=== PATIENT | female | born 1980 | race Caucasian/White ===

== ENCOUNTER 2016-09-26 19:41 | Emergency (ER) | payer OTHER ==
[2016-09-26 20:15] VITALS: BP 121/63
[2016-09-26] MEDS ORDERED: Ketorolac INJ* 30 MG/ML 1 ML VIAL IV PUSH ONE (20:33)
--- NOTE | 2016-09-26 20:53 | ED ---
GI/ HPI - HPI Summary HPI Summary: 36 F presents with pelvic pain for one day. She states the pain came out of nowhere and is 8/10 at 5pm. She denies any vaginal bleeding, dysuria, fever, ab pain, and n/v/d/c. She states the pain is sharp and it is smiliar to the pain she had when she had a uterine prolapse years ago. She had a hysterectomy a year ago here due to the uterine prolapse. She has not taken anything for the pain. She denies any recent sexual activity. - History of Current Complaint Chief Complaint: EDUrogenitalProblems Time Seen by Provider: 09/26/16 20:24 Stated Complaint: PELVIC PAIN Pain Intensity: 8 - Additional Pertinent History Primary Care Physician: SATISH - Allergy/Home Medications Allergies/Adverse Reactions: Allergies Allergy/AdvReac Type Severity Reaction Status Date / Time Aspirin Allergy Intermediate Vomiting Verified 07/15/16 16:57 Penicillins Allergy Intermediate Vomiting Verified 07/15/16 16:57 Latex Allergy Mild Hives Verified 07/15/16 16:57 PMH/Surg Hx/FS Hx/Imm Hx Endocrine/Hematology History: Reports: Hx Anemia - IN THE PAST, NOT AT CURRENT TIME Denies: Hx Diabetes, Hx Systemic Lupus Erythematosus, Hx Thyroid Disease Cardiovascular History: Reports: Other Cardiovascular Problems/Disorders - murmur Denies: Hx Congestive Heart Failure, Hx Hypertension Respiratory History: Reports: Hx Asthma - childhood-STATES OUTGREW Denies: Hx Chronic Obstructive Pulmonary Disease (COPD), Other Respiratory Problems/Disorders GI History: Reports: Hx Irritable Bowel - PROBLEMS WITH CONSTIPATION, Other GI Disorders - GASTRITIS Denies: Hx Ulcer History: Reports: Hx Kidney Stones - HX OF AND CURRENTLY- STATES ARE SMALL- MONITORING Denies: Hx Dialysis Musculoskeletal History: Denies: Hx Rheumatoid Arthritis Sensory History: Reports: Hx Contacts or Glasses - GLASSES Denies: Hx Hearing Aid Opthamlomology History: Reports: Hx Contacts or Glasses - GLASSES Neurological History: Reports: Hx Headaches - AT TIMES-TREATS WITH REST- TREATS WITH IBUPROFEN OR TYLENOL, Hx Migraine, Other Neuro Impairments/Disorders - ON MEDICATION FOR Psychiatric History: Reports: Hx Anxiety - ON MEDICATION, Hx Depression - ON MEDICATION FOR - Cancer History Hx Chemotherapy: No - Surgical History Surgery Procedure, Year, and Place: TUBAL LIGATION- 3 YEARS AGO- [facility] [place]AL SURGERY- OFFICE. 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 Denies: Hx Clostridium Difficile, Hx Hepatitis, Hx Human Immunodeficiency Virus (HIV), Hx Shingles, Hx Tuberculosis, History Other Infectious Disease, Traveled Outside the [place] in Last 30 Days - Family History Known Family History: Positive: None, Cardiac Disease, Diabetes, Other - Fibromyalgia - Social History Alcohol Use: None Hx Substance Use: No Substance Use Type: Reports: None Smoking Status (MU): Heavy Every Day Tobacco Smoker Type: Cigars Amount Used/How Often: 2 cigars/day Length of Time of Smoking/Using Tobacco: 15 YEARS Have You Smoked in the Last Year: Yes Review of Systems Negative: Fever Negative: Chest Pain Negative: Shortness Of Breath Positive: Other - pelvic pain. Negative: Abdominal Pain, Vomiting, Diarrhea, Nausea All Other Systems Reviewed And Are Negative: Yes Physical Exam Triage Information Reviewed: Yes Vital Signs On Initial Exam: Initial Vitals Temp Pulse Resp BP Pulse Ox 97.7 F 105 16 121/63 100 09/26/16 20:10 09/26/16 20:10 09/26/16 20:10 09/26/16 20:10 09/26/16 20:10 Vital Signs Reviewed: Yes Appearance: Positive: Pain Distress Skin: Positive: Warm, Dry Head/Face: Positive: Normal Head/Face Inspection Eyes: Positive: Normal, Conjunctiva Clear ENT: Positive: Normal ENT inspection, Pharynx normal, TMs normal Respiratory/Lung Sounds: Positive: Clear to Auscultation, Breath Sounds Present Cardiovascular: Positive: Normal, RRR Abdomen Description: Positive: Nontender, Soft Bowel Sounds: Positive: Present Pelvic Exam: Positive: external exam normal, other - no cervix noted, bimanual exam diffusely tender,. Negative: blood, discharge Diagnostics - Vital Signs Vital Signs Temp Pulse Resp BP Pulse Ox 09/26/16 20:10 97.7 F 105 16 121/63 100 - Laboratory Result Diagrams: 09/26/16 20:40 09/26/16 20:40 Lab Statement: Any lab studies that have been ordered have been reviewed, and results considered in the medical decision making process. - Ultrasound No standard instances Ultrasound Interpretation: No Acute Changes - There is no free fluid in the cul- de-sac. IMPRESSION: Normal and age-appropriate pelvic ultrasound status post hysterectomy. Ultrasound Interpretation Completed By: Radiologist [email or web address] Course/Dx - Course Course Of Treatment: 36 F presents with sudden onset pelvic pain, no other symptoms, no recent sexual activity and post hysertecomy a year ago, abd exam benign, pelvic exam diffuse tenderness, u/s noramal posthysterectomy changes, discussed with dr wilson, considered appenditis but due to diffuse tenderness on pelvic exam no abdominal tenderness no elevated WBC or crp rate unlikely, discussed that if anything changes like develops RLQ pain needs to come, told patient to follow up with obgyn patient agrees with plan - Diagnoses Differential Diagnoses - Female: Appendicitis, STD, Urinary Tract Infection, Vaginitis Provider Diagnoses: Pelvic pain Discharge - Discharge Plan Condition: Good Disposition: HOME Patient Education Materials: Pelvic Pain in Women (ED) Referrals: Maira Hoang MD [Primary Care Provider] - Additional Instructions: Take ibuprofen or Tylenol for pain as needed Follow up with obgyn Return to ED if develop nausea, abdominal pain, fever, any new or worsening symptoms
[2016-09-26 21:10] LABS: Albumin 4.2 g/dL (3.2-5.2); BUN/Creatinine Ratio 8.1 (8-20); Calcium 9.1 mg/dL (8.6-10.3); EGFR African American 114.9 (>60); EGFR Non-African American 89.3 (>60); Globulin 2.6 g/dL (2-4); Potassium 2.8 mmol/L (3.5-5.0); Total Bilirubin 0.3 mg/dL (0.2-1.0); Total Protein 6.8 g/dL (6.4-8.9)
[2016-09-26 21:11] LABS: Urine Bilirubin Negative (Negative); Urine Glucose Negative (Negative); Urine Nitrite Negative (Negative)
[2016-09-26 21:15] LABS: Hematocrit 39 % (35-47); Hemoglobin 13.1 g/dl (12.0-16.0); Mean Corpuscular HGB Conc 34 g/dl (31-36); Mean Corpuscular Hemoglobin 31 pg (27-31); Mean Corpuscular Volume 91 fL (80-97); Mean Platelet Volume 8 um3 (7.4-10.4); Red Blood Count 4.28 10^6/ul (4.0-5.4); Red Cell Distribution Width 13 % (10.5-15); White Blood Count 6.2 10^3/ul (3.5-10.8)
--- NOTE | 2016-09-26 21:58 | RAD ---
INDICATION: Pelvic pain in a patient with a history of hysterectomy COMPARISON: Most recent pelvic ultrasound is dated September 01, 2015 TECHNIQUE: Real-time transvaginal ultrasound examination of the female pelvis including grayscale and Doppler color flow imaging. FINDINGS: Uterus: Uterus is surgically absent Ovaries: The right and left ovary measure 2.2 x 1.6 x 3.4 cm and 2.1 x 1.3 x 2.4 cm, respectively. Normal arterial and venous waveforms are identified. Appearance is within normal limits for the patient's age. There is no free fluid in the cul-de-sac. IMPRESSION: Normal and age-appropriate pelvic ultrasound status post hysterectomy.
[2016-09-26] MEDS ORDERED: Potassium Chlor TAB* 20 MEQ TAB.ER PO ONE (22:23)
--- NOTE | 2016-09-28 07:15 | ED ---
Progress - Progress Note Progress Note: Vaginal cx reveals Gardnerella BV - no meds at d/c - e-rx'd clindamycin vaginally to [facility] - [facility] Course/Dx - Course Course Of Treatment: 36 F presents with sudden onset pelvic pain, no other symptoms, no recent sexual activity and post hysertecomy a year ago, abd exam benign, pelvic exam diffuse tenderness, u/s noramal posthysterectomy changes, discussed with dr wilson, considered appenditis but due to diffuse tenderness on pelvic exam no abdominal tenderness no elevated WBC or crp rate unlikely, discussed that if anything changes like develops RLQ pain needs to come, told patient to follow up with obgyn patient agrees with plan - Diagnoses Provider Diagnoses: Pelvic pain
== END 2016-09-26 22:50 | disposition home or self-care (01) ==
LOC: ED 19:41
DX: R10.2 Pelvic and perineal pain (principal); Z90.710 Acquired absence of both cervix and uterus; F17.210 Nicotine dependence, cigarettes, uncomplicated
CPT/HCPCS: 36415; 76830; 80053; 81003; 83605; 83690; 85025; 86141; 87480; 87491; 87510; 87591; 87661; 96374; 99282; A9270-GY; J1885

== ENCOUNTER 2016-12-29 09:00 | Emergency (ER) | payer OTHER ==
[2016-12-29 10:55] VITALS: BP 119/70
--- NOTE | 2016-12-29 11:16 | UC ---
Neck Pain HPI - HPI Summary HPI Summary: The patient comes in today for: 1. Right neck pain: Onset: This morning. She was fine yesterday, and woke up with a sore neck. Palliative/provocative: Turning her head to the right or forward makes it worse. Quality: Ache. Region: Right neck Severity: 6/10 at rest. Time: Constant. Associated symptoms: Fevers: None. Numbness/weakness:None. Injury: NOne. Previous disease: None. Previous treatment: None. * - History of Current Complaint Chief Complaint: UCUpperExtremity Stated Complaint: SHOULDER AND NECK PAIN Time Seen by Provider: 12/29/16 10:26 Hx Obtained From: Patient Hx Last Menstrual Period: 09/30/14 hyst. ?: No - Allergies/Home Medications Allergies/Adverse Reactions: Allergies Allergy/AdvReac Type Severity Reaction Status Date / Time Aspirin Allergy Intermediate Vomiting Verified 12/29/16 09:19 Penicillins Allergy Intermediate Vomiting Verified 12/29/16 09:19 Latex Allergy Mild Hives Verified 12/29/16 09:19 PMH/Surg Hx/FS Hx/Imm Hx Previously Healthy: No - ADHD Endocrine History Of: Denies: Diabetes, Thyroid Disease, Hyperthyroidism, Hypothyroidism, Dyslipidemia Cardiovascular History Of: Denies: Cardiac Disorders, Hypertension, Congestive Heart Failure Respiratory History Of: Reports: Asthma - childhood-STATES OUTGREW Denies: COPD, Bronchitis, Pneumonia, Pulmonary Embolism GI/ History Of: Reports: Kidney Stones - HX OF AND CURRENTLY- STATES ARE SMALL - MONITORING Denies: Gastroesophageal Reflux, Ulcer, Gastrointestinal Bleed, Gall Bladder Disease, Diverticulitis, Renal Disease, Urosepsis Neurological History Of: Reports: Migraine Denies: TIA, CVA, Dementia, Seizures Psychological History Of: Reports: Anxiety - ON MEDICATION, Depression - ON MEDICATION FOR Denies: Bipolar Disorder, Schizophrenia, Post Traumatic Stress Disorder Cancer History Of: Denies: Lung Cancer, Colorectal Cancer, Breast Cancer, Prostate Cancer, Cervical Cancer Other History Of: Negative For: HIV, Hepatitis B, Hepatitis C, Anticoagulant Therapy - Surgical History Surgical History: Yes Surgery Procedure, Year, and Place: TUBAL LIGATION- 3 YEARS AGO- [facility] [place]GERY- OFFICE. hysterectomy 2014 Hysterectomy 2016 - Family History Known Family History: Positive: Cardiac Disease, Diabetes, Other - Fibromyalgia - Social History Occupation: Employed Full-time Alcohol Use: None Substance Use Type: None Smoking Status (MU): Heavy Every Day Tobacco Smoker Type: Cigarettes Amount Used/How Often: 2 cigars/day Length of Time of Smoking/Using Tobacco: 15 YEARS Have You Smoked in the Last Year: Yes When Did the Patient Quit Smoking/Using Tobacco: 1 MONTH Review Of Systems Constitutional: Positive: Negative Skin: Positive: Negative Eyes: Positive: Negative ENT: Positive: Negative Respiratory: Positive: Negative Cardiovascular: Positive: Negative Gastrointestinal: Positive: Negative Musculoskeletal: Positive: Arthralgia, Myalgia All Other Systems Reviewed And Are Negative: Yes Physical Exam Triage Information Reviewed: Yes Appearance: Well-Appearing, No Pain Distress, Well-Nourished Vital Signs: Initial Vital Signs Temp 98.6 F 12/29/16 09:12 Pulse 92 12/29/16 09:12 Resp 18 12/29/16 09:12 BP 109/68 12/29/16 09:12 Pulse Ox 100 12/29/16 09:12 Vital Signs Reviewed: Yes Eyes: Positive: Conjunctiva Clear. Negative: Discharge ENT: Negative: Hearing grossly normal, Pharynx normal, Pharyngeal erythema, TMs normal, TM bulging Dental: Negative: Gross Decay/Caries @, Dental Fracture @ Neck: Positive: Supple, Nontender, No Lymphadenopathy. Negative: Nuchal Rigidity Respiratory: Positive: Lungs clear, No respiratory distress, No accessory muscle use. Negative: Crackles, Stridor Cardiovascular: Positive: RRR, No Murmur Abdomen Description: Positive: Nontender, No Organomegaly, Soft. Negative: Distended, Guarding Musculoskeletal: Positive: No Edema, Other: - Neck: There is tenderness to palpation of the right trapezius and also the right scalene musculature. Range of motion of the neck is limited with extension and rotation and bilateral flexion. Neurological: Positive: Alert, Other: - DTR of the biceps, triceps, brachioradialis are 2+/2 x 2. Skin: Negative: rashes, breakdown Neck Pain Course/Dx - Course Course Of Treatment: Patient told of some home physical stretching exercises. She was told of her treatment options. She was not interesed in getting an x- ray. - Differential Dx/Diagnosis Differential Dx/HQI/PQRI: Dystonia, Torticollis, Trauma Provider Diagnoses: Cervical strain, right. Discharge - Discharge Plan Condition: Stable Disposition: HOME Patient Education Materials: Cervical Strain (ED) Referrals: Maira Hoang MD [Primary Care Provider] - 1 Week (Please see your primary care provider in a week to see how well you are doing. If you get worse, please be seen sooner in the ER or through us.)
== END 2016-12-29 11:35 | disposition home or self-care (01) ==
LOC: UCEAST 09:00
DX: S16.1XXA Strain of muscle, fascia and tendon at neck level, initial encounter (principal); X58.XXXA Exposure to other specified factors, initial encounter; Y93.9 Activity, unspecified; Y92.9 Unspecified place or not applicable; G43.909 Migraine, unspecified, not intractable, without status migrainosus; N20.0 Calculus of kidney; Z87.442 Personal history of urinary calculi; F90.9 Attention-deficit hyperactivity disorder, unspecified type; F41.8 Other specified anxiety disorders; Z88.6 Allergy status to analgesic agent; Z88.0 Allergy status to penicillin; F17.210 Nicotine dependence, cigarettes, uncomplicated
CPT/HCPCS: 99212; G0463

== ENCOUNTER 2017-04-20 20:26 | Emergency (ER) | payer OTHER ==
--- NOTE | 2017-04-20 20:27 | UC ---
Hand/Wrist HPI - HPI Summary HPI Summary: 36 year old female presents with complains of smashing his right hand into the wind shield. - History Of Current Complaint Stated Complaint: RIGHT HAND INJURY Time Seen by Provider: 04/20/17 20:26 Hx Last Menstrual Period: 09/30/14 hyst. - Allergies/Home Medications Allergies/Adverse Reactions: Allergies Allergy/AdvReac Type Severity Reaction Status Date / Time Aspirin Allergy Intermediate Vomiting Verified 04/20/17 20:37 Penicillins Allergy Intermediate Vomiting Verified 04/20/17 20:37 Latex Allergy Mild Hives Verified 04/20/17 20:37 Home Medications: Home Medications Omeprazole CAP* [Prilosec CAP* 20 MG] 20 mg PO DAILY 04/20/17 [History Confirmed 04/20/17] PMH/Surg Hx/FS Hx/Imm Hx Other History Of: Negative For: HIV, Hepatitis B, Hepatitis C, Anticoagulant Therapy - Surgical History Surgical History: Yes Surgery Procedure, Year, and Place: TUBAL LIGATION- 3 YEARS AGO- [facility] – [place]. ORAL SURGERY- OFFICE. hysterectomy 2014 Hysterectomy 2016 - Family History Known Family History: Positive: Cardiac Disease, Diabetes, Other - Fibromyalgia - Social History Alcohol Use: None Substance Use Type: None Smoking Status (MU): Heavy Every Day Tobacco Smoker Type: Cigarettes Amount Used/How Often: 2 cigars/day Length of Time of Smoking/Using Tobacco: 15 YEARS Have You Smoked in the Last Year: Yes When Did the Patient Quit Smoking/Using Tobacco: 1 MONTH Review of Systems Constitutional: Negative Skin: Negative Eyes: Negative ENT: Negative Respiratory: Negative Cardiovascular: Negative Gastrointestinal: Negative Genitourinary: Negative Motor: Negative Neurovascular: Negative Musculoskeletal: Other: - right wrist pain/swelling Neurological: Negative Psychological: Negative All Other Systems Reviewed And Are Negative: Yes Physical Exam Triage Information Reviewed: Yes Eye Exam: Normal ENT Exam: Normal Dental Exam: Normal Neck exam: Normal Neck: Positive: 1 Respiratory Exam: Normal Cardiovascular Exam: Normal Abdominal Exam: Normal Musculoskeletal: Positive: Other: - right wrist/hand swelling/pain Neurological Exam: Normal Psychological Exam: Normal Skin: Positive: Other - healed abrasion on right forearm Hand/Wrist Course/Dx - Differential Dx/Diagnosis Provider Diagnoses: right wrist pain/swelling Discharge - Discharge Plan Condition: Stable Disposition: HOME Prescriptions: Meloxicam [Mobic] 7.5 mg PO BID PC #30 tab Patient Education Materials: Wrist Sprain (ED) Referrals: Cedric Elizabeth DO [Primary Care Provider] - If Needed
[2017-04-20 20:45] VITALS: BP 128/84
--- NOTE | 2017-04-20 21:02 | RAD ---
INDICATION: Metacarpal region RIGHT hand pain following punching injury. COMPARISON: None. TECHNIQUE: AP, lateral, and oblique views RIGHT wrist. AP, lateral, and oblique views RIGHT hand. REPORT AND IMPRESSION: Negative for fracture or malalignment at the wrist or hand. Soft tissue swelling over the dorsum of the hand most prominent at the level of the metacarpal phalangeal joints.
== END 2017-04-20 21:21 | disposition home or self-care (01) ==
LOC: UCCORT 20:26
DX: M25.531 Pain in right wrist (principal); M25.431 Effusion, right wrist; Z88.0 Allergy status to penicillin; Z88.6 Allergy status to analgesic agent; Z91.040 Latex allergy status; F17.210 Nicotine dependence, cigarettes, uncomplicated
CPT/HCPCS: 99213; G0463

== ENCOUNTER 2017-07-25 17:44 | Emergency (ER) | payer OTHER ==
[2017-07-25] MEDS ORDERED: Ketorolac INJ* 60 MG/2 ML VIAL IM ONE (19:28)
[2017-07-25] MEDS ORDERED: Cyclobenzaprine TAB* 10 MG PO ONE (19:28)
[2017-07-25] MEDS ORDERED: Dexamethasone TAB* 4 MG PO ONE (19:28)
[2017-07-25] MEDS ORDERED: oxyCODONE/Acetamin 5/325 MG* TAB PO ONE ×2 (19:29→20:30)
--- NOTE | 2017-07-25 20:00 | RAD ---
HISTORY: Lifting injury, numbness in arms COMPARISONS: None TECHNIQUE: Multiple contiguous axial CT scans were obtained of the cervical spine without intravenous contrast, with coronal and sagittal multiplanar reformations. FINDINGS: BRAIN: The visualized brain is unremarkable CENTRAL CANAL: Evaluation of the central canal is limited on CT technique, however there is no obvious canalicular mass or epidural hemorrhage. ALIGNMENT: There is straightening of the normal cervical lordosis. VERTEBRAL BODIES: There is mild anterolateral marginal osteophyte formation at C5-C6. JOINTS: There is uncovertebral hypertrophy at C5-C6 MUSCULATURE: Unremarkable INTERVERTEBRAL DISCS: There is diffuse loss of intervertebral disc height. AXIAL IMAGES: There is a broad-based disc bulge at C5-C6 with mild narrowing of the central canal. There is moderate bilateral neural foraminal narrowing. SOFT TISSUES: The visualized soft tissues of the neck are unremarkable. The prevertebral fat stripe is preserved. OTHER: None. IMPRESSION: 1. STRAIGHTENING OF THE CERVICAL LORDOSIS. 2. DEGENERATIVE DISC DISEASE AND OSTEOARTHRITIS AT C5-C6 WITH MILD NARROWING OF THE CENTRAL CANAL AND MODERATE BILATERAL NEURAL FORAMINAL NARROWING..
--- NOTE | 2017-07-25 20:01 | RAD ---
HISTORY: Lifting injury, numbness to arms COMPARISONS: None TECHNIQUE: Multiple contiguous axial CT scans were obtained of the thoracic spine without intravenous contrast, with coronal and sagittal multiplanar reformations. FINDINGS: SPINAL CANAL: Evaluation of the central canal is limited on CT technique; however, there is no obvious canalicular mass or epidural hemorrhage. ALIGNMENT: The alignment is normal. VERTEBRAL BODIES: The vertebral bodies are preserved in height. The bones are normal in attenuation. There is mild multilevel anterolateral marginal osteophyte formation. JOINTS: There is mild osteoarthritis of the costovertebral joints. MUSCULATURE: Unremarkable INTERVERTEBRAL DISCS: There is diffuse loss of intervertebral disc height throughout the spine. AXIAL IMAGES: There is no osseous central canal stenosis or neuroforaminal narrowing. SOFT TISSUES: The visualized soft tissues of the chest and abdomen are unremarkable. OTHER: None IMPRESSION: MILD DEGENERATIVE CHANGES, WITHOUT OSSEOUS NEURAL FORAMINAL NARROWING OR CENTRAL CANAL STENOSIS.
--- NOTE | 2017-07-25 20:33 | ED ---
Back Pain - HPI Summary HPI Summary: 36F presents with neck and thoracic back pain for a day. She was moving furniture when it started. She developed numbness and tingling in bilateral arms which is new. has history of slipped disk. has pain in that area. took ibuprofen and Tylenol without relief. no fever. no loss of bowel or bladder. no saddle anaesthesia. no weakness. pain is 10/10. - History of Current Complaint Chief Complaint: EDNeckComplaint Stated Complaint: NECK & SHOULDER PAIN Time Seen by Provider: 07/25/17 19:10 Hx Last Menstrual Period: 09/30/14 hyst. Pain Intensity: 8 - Allergies/Home Medications Allergies/Adverse Reactions: Allergies Allergy/AdvReac Type Severity Reaction Status Date / Time Aspirin Allergy Intermediate Vomiting Verified 04/20/17 20:37 Penicillins Allergy Intermediate Vomiting Verified 04/20/17 20:37 Latex Allergy Mild Hives Verified 04/20/17 20:37 PMH/Surg Hx/FS Hx/Imm Hx Endocrine/Hematology History: Reports: Hx Anemia - IN THE PAST, NOT AT CURRENT TIME Denies: Hx Anticoagulant Therapy, Hx Diabetes, Hx Systemic Lupus Erythematosus, Hx Thyroid Disease Cardiovascular History: Reports: Other Cardiovascular Problems/Disorders - murmur Denies: Hx Congestive Heart Failure, Hx Hypertension Respiratory History: Reports: Hx Asthma - childhood-STATES OUTGREW Denies: Hx Chronic Obstructive Pulmonary Disease (COPD), Hx Lung Cancer, Hx Pneumonia, Hx Pulmonary Embolism, Other Respiratory Problems/Disorders GI History: Reports: Hx Irritable Bowel - PROBLEMS WITH CONSTIPATION, Other GI Disorders - GASTRITIS Denies: Hx Gall Bladder Disease, Hx Gastrointestinal Bleed, Hx Ulcer, Hx Urosepsis History: Reports: Hx Kidney Stones - HX OF AND CURRENTLY- STATES ARE SMALL- MONITORING Denies: Hx Dialysis, Hx Renal Disease Musculoskeletal History: Denies: Hx Rheumatoid Arthritis Sensory History: Reports: Hx Contacts or Glasses - GLASSES Denies: Hx Hearing Aid Opthamlomology History: Reports: Hx Contacts or Glasses - GLASSES Neurological History: Reports: Hx Headaches - AT TIMES-TREATS WITH REST- TREATS WITH IBUPROFEN OR TYLENOL, Hx Migraine, Other Neuro Impairments/Disorders - ON MEDICATION FOR Denies: Hx Dementia, Hx Seizures, Hx Transient Ischemic Attacks (TIA) Psychiatric History: Reports: Hx Anxiety - ON MEDICATION, Hx Depression - ON MEDICATION FOR Denies: Hx Schizophrenia, Hx Bipolar Disorder - Cancer History Hx Chemotherapy: No - Surgical History Surgery Procedure, Year, and Place: TUBAL LIGATION- [place] [facility] [place]GERY- OFFICE. 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 Denies: Hx Clostridium Difficile, Hx Hepatitis, Hx Human Immunodeficiency Virus (HIV), Hx Shingles, Hx Tuberculosis, History Other Infectious Disease, Traveled Outside the [place] in Last 30 Days - Family History Known Family History: Positive: Cardiac Disease, Diabetes, Other - Fibromyalgia - Social History Alcohol Use: None Hx Substance Use: No Substance Use Type: Reports: None Smoking Status (MU): Heavy Every Day Tobacco Smoker Type: Cigarettes Amount Used/How Often: 2 cigars/day Length of Time of Smoking/Using Tobacco: 15 YEARS Have You Smoked in the Last Year: Yes Review of Systems Negative: Fever Negative: Chest Pain Negative: Shortness Of Breath Positive: Myalgia - back pain All Other Systems Reviewed And Are Negative: Yes Physical Exam Triage Information Reviewed: Yes Vital Signs On Initial Exam: Initial Vitals Temp Pulse Resp BP Pulse Ox 97 F 80 16 119/67 99 07/25/17 17:47 07/25/17 17:47 07/25/17 17:47 07/25/17 17:47 07/25/17 17:47 Vital Signs Reviewed: Yes Appearance: Positive: Well-Appearing Skin: Positive: Warm, Dry Head/Face: Positive: Normal Head/Face Inspection Eyes: Positive: Normal, EOMI, SAHRA, Conjunctiva Clear ENT: Positive: Normal ENT inspection, Pharynx normal, TM bulging Respiratory/Lung Sounds: Positive: Clear to Auscultation, Breath Sounds Present Cardiovascular: Positive: Normal, RRR Musculoskeletal: Positive: Strength/ROM Intact - neck and back with pain, Other - tenderness midline cervical and thoracic back, good welfare visitor strength, capillary refill<2 secs Neurological: Positive: Reflexes Intact - biceps Psychiatric: Positive: Normal - [place] Coma Scale Coma Scale Total: 15 Diagnostics - Vital Signs Vital Signs Temp Pulse Resp BP Pulse Ox 07/25/17 20:06 16 07/25/17 17:47 97 F 80 16 119/67 99 - Laboratory Lab Statement: Any lab studies that have been ordered have been reviewed, and results considered in the medical decision making process. - CT neck CT Interpretation: Positive (See Comments) - IMPRESSION: 1. STRAIGHTENING OF THE CERVICAL LORDOSIS. 2. DEGENERATIVE DISC DISEASE AND OSTEOARTHRITIS AT C5-C6 WITH MILD NARROWING OF THE CENTRAL CANAL AND MODERATE BILATERAL NEURAL FORAMINAL NARROWING.. CT Interpretation Completed By: Radiologist thoracic CT Interpretation: Positive (See Comments) - IMPRESSION: MILD DEGENERATIVE CHANGES, WITHOUT OSSEOUS NEURAL FORAMINAL NARROWING OR CENTRAL CANAL STENOSIS. CT Interpretation Completed By: Radiologist Back Pain Course/Dx - Course Course Of Treatment: 36F presents with neck and thoracic back pain for a day. She was moving furniture when it started. She developed numbness and tingling in bilateral arms which is new. has history of slipped disk. has pain in that area. took ibuprofen and Tylenol without relief. no fever. no loss of bowel or bladder. no saddle anaesthesia. no weakness. pain is 10/10. biceps reflex intact. tender across cervical and thoracic back with midline tenderness. good arm strength. CT neck and thoracic shows degerenative disk disease. will treat with flexeril and steriod. patient understand and agrees with plan. - Diagnoses Differential Diagnosis/HQI/PQRI: Positive: Herniated Disc, Strain, Sprain Provider Diagnoses: Back pain Discharge - Discharge Plan Condition: Good Disposition: HOME Prescriptions: Cyclobenzaprine TAB* [Flexeril 10 MG TAB*] 10 mg PO TID PRN #15 tab PRN Reason: Pain Lidocaine PATCH 5%* [Lidoderm 5% Patch*] 1 patch TRANSDERM DAILY #10 patch Methylprednisolone [Medrol Dosepak 4 MG*] 4 mg PO .SEE TREVOR INSTRUCTION #1 packet Patient Education Materials: Back Pain (ED) Referrals: Cedric Elizabeth DO [Primary Care Provider] - Additional Instructions: Follow directions on package for Medrol pack Take muscle relaxers three times a day Apply lidocaine patches to area for up to 12 hours in one 24 hour period Use ibuprofen or Tylenol for pain every 6 hours ice/heat area, move as much as possible Follow up with primary within 5 days Return to ED if develop any new or worsening symptoms
[2017-07-25 21:03] VITALS: BP 120/70
== END 2017-07-25 21:11 | disposition home or self-care (01) ==
LOC: ED 17:44
DX: M54.6 Pain in thoracic spine (principal); K58.9 Irritable bowel syndrome, unspecified; X50.0XXA Overexertion from strenuous movement or load, initial encounter; Y93.89 Activity, other specified; Y92.9 Unspecified place or not applicable
CPT/HCPCS: 72125; 72128; 96372; 99283; A9270-GY; J1885; J8540

== ENCOUNTER 2017-10-08 14:36 | Emergency (ER) | payer OTHER ==
[2017-10-08 15:23] LABS: Urine Appearance Cloudy; Urine Blood 1+ (Negative); Urine Color Yellow; Urine Ketones Negative (Negative); Urine Protein Negative (Negative); Urine Specific Gravity 1.013 (1.010-1.030); Urine Urobilinogen Negative (Negative)
[2017-10-08 15:43] VITALS: BP 106/73
--- NOTE | 2017-10-10 09:13 | PN ---
Progress Note - Progress Note Date of Service: 10/08/17 Note: diagnosed and treated for bacterial vaginosis and UTI. culture results show positive for bacterial vaginosis. no further action required at this time.
--- NOTE | 2017-10-10 09:17 | PN ---
Progress Note - Progress Note Date of Service: 10/08/17 Note: >100,000 of e. coli grew on urine culture results diagnosed and treated for UTI with Bactrim. will wait final culture sensitivity results. no further action required at this time.
--- NOTE | 2017-10-11 08:38 | ED ---
Progress - Progress Note Progress Note: Pt's final cx and sens concluded organism is Restistant to bactrim and needs different anbx to tx. Chart indicates she's allergic to PCN however there are multiple other options for tx. LMTC. Other cx confirms BV - pt has been started on flagyl - no changes. Course/Dx - Diagnoses Provider Diagnoses: Bacterial vaginosis, UTI (urinary tract infection)
--- NOTE | 2017-10-13 19:33 | ED ---
Carmen Mack Abhishek, scribed for Isamar Nevarez MD on 10/08/17 at 1521 . GI/ HPI - HPI Summary HPI Summary: This patient is a 37 year old F presenting to [facility] with a chief complaint of vaginal discharge since 10/04/17. Pt states her urine is malodorous and that it is "irritating". Pt was treated for bacterial vaginosis recently. Pt states she took flagyl orally in order to treat BV. Pt completed flagyl 3 weeks ago. PT states that the symptoms did not disappear after 3 weeks. Abd pain radiates to the back. The pain is described as sharp and cramping. Pt has an autoimmune deficiency (RA , PMR) and does not want the BV to get worse. Pertinent PMHx also includes rheumatoid arthritis, PMR, and fibromyalgia. Pt is on muscle relaxers but has not seen specialists so is not on immunosuppressant drugs. She was dx with these dx recently. Pertinent surgeries also include hysterectomy (uterus was prolapsed) and G2: P2: A0. The patient rates the pain 6/10 in severity. Symptoms aggravated by nothing. Symptoms alleviated by nothing. Patient reports coughing, abd pain (lower), nausea, and sinus congestion. Pelvic cultures were taken at the pts primary doctor prior to treatment with the Flagyl. Her PCP is [facility]. Patient denies chest pain, and SOB. Allergies are reviewed and noted to be aspirin and penicillin. - History of Current Complaint Chief Complaint: EDUrogenitalProblems Time Seen by Provider: 10/08/17 14:52 Stated Complaint: POSSIBLE UTI Hx Obtained From: Patient Onset/Duration: Started Days Ago - since 10/04/17, Started Weeks Ago, Still Present Timing: Constant Severity: Moderate Current Severity: Moderate Pain Intensity: 6 Location of Pain: Suprapubic Pain Characteristics: Sharp, Cramping Pain Radiates to: Back Associated Signs and Symptoms: Positive: Nausea, Abdominal Pain - nausea, Cough , Other: - Back pain, malodorous urine, sinus congestion. Negative SOB. Negative: Chest Pain Additional Signs & Symptoms: Positive: Vaginal Discharge Aggravating Factor(s): Nothing Alleviating Factor(s): Nothing - Additional Pertinent History Primary Care Physician: [id number] - Allergy/Home Medications Allergies/Adverse Reactions: Allergies Allergy/AdvReac Type Severity Reaction Status Date / Time Aspirin Allergy Intermediate Vomiting Verified 10/08/17 14:45 Penicillins Allergy Intermediate Vomiting Verified 10/08/17 14:45 Latex Allergy Mild Hives Verified 10/08/17 14:45 PMH/Surg Hx/FS Hx/Imm Hx Previously Healthy: No Endocrine/Hematology History: Reports: Hx Anemia - IN THE PAST, NOT AT CURRENT TIME Denies: Hx Anticoagulant Therapy, Hx Diabetes, Hx Systemic Lupus Erythematosus, Hx Thyroid Disease Cardiovascular History: Reports: Other Cardiovascular Problems/Disorders - murmur Denies: Hx Congestive Heart Failure, Hx Hypertension Respiratory History: Reports: Hx Asthma - childhood-STATES OUTGREW Denies: Hx Chronic Obstructive Pulmonary Disease (COPD), Hx Lung Cancer, Hx Pneumonia, Hx Pulmonary Embolism, Other Respiratory Problems/Disorders GI History: Reports: Hx Irritable Bowel - PROBLEMS WITH CONSTIPATION, Other GI Disorders - GASTRITIS Denies: Hx Gall Bladder Disease, Hx Gastrointestinal Bleed, Hx Ulcer, Hx Urosepsis History: Reports: Hx Kidney Stones Denies: Hx Dialysis, Hx Renal Disease Musculoskeletal History: Reports: Hx Rheumatoid Arthritis - PMR, Hx Fibromyalgia Sensory History: Reports: Hx Contacts or Glasses - GLASSES Denies: Hx Hearing Aid Opthamlomology History: Reports: Hx Contacts or Glasses - GLASSES Neurological History: Reports: Hx Headaches - AT TIMES-TREATS WITH REST- TREATS WITH IBUPROFEN OR TYLENOL, Hx Migraine Denies: Hx Dementia, Hx Seizures, Hx Transient Ischemic Attacks (TIA) Psychiatric History: Reports: Hx Anxiety - ON MEDICATION, Hx Depression - ON MEDICATION FOR Denies: Hx Schizophrenia, Hx Bipolar Disorder - Cancer History Hx Chemotherapy: No - Surgical History Surgery Procedure, Year, and Place: [place] [facility] [place]. 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 Denies: Hx Clostridium Difficile, Hx Hepatitis, Hx Human Immunodeficiency Virus (HIV), Hx Shingles, Hx Tuberculosis, History Other Infectious Disease, Traveled Outside the [place] in Last 30 Days - Family History Known Family History: Positive: Cardiac Disease, Diabetes, Other - Fibromyalgia - Social History Alcohol Use: None Hx Substance Use: No Substance Use Type: Reports: None Smoking Status (MU): Heavy Every Day Tobacco Smoker Type: Cigarettes Amount Used/How Often: 2 cigars/day Length of Time of Smoking/Using Tobacco: 15 YEARS Have You Smoked in the Last Year: Yes Review of Systems Constitutional: Negative Eyes: Negative ENT: Other - sinus congestion Negative: Chest Pain Positive: Cough. Negative: Shortness Of Breath Positive: Abdominal Pain - lower, Nausea Genitourinary: Other - malodorous urine Positive: discharge Positive: Myalgia - back pain Skin: Negative Neurological: Negative Psychological: Normal All Other Systems Reviewed And Are Negative: Yes Physical Exam - Summary Physical Exam Summary: Appearance: Ill-appearing, moderate pain distress, Well-nourished Skin: Warm, color reflects adequate perfusion Head: Normal Head/Face inspection Eyes: Conjunctiva clear ENT: Normal inspection Neck: Supple, no nodes, no JVD. Respiratory: Lungs clear, Normal breath sounds, no respiratory distress Cardio: RRR, No murmur, pulses normal, brisk capillary refill Abdomen: soft, minimal suprapubic tenderness, no masses Bowel sounds: present Musculoskeletal: Strength Intact/ ROM intact. No calf tenderness. No edema. Pelvic Exam: External genital normal Vagina without cervix Moderate amount of white discharge Adnexa present no mass non tender Neuro: Alert, muscle tone normal, facial symmetry, speech normal, sensory/motor intact Psychological: Normal Triage Information Reviewed: Yes Vital Signs On Initial Exam: Initial Vitals Temp Pulse Resp BP Pulse Ox 97.2 F 105 19 99/71 95 10/08/17 14:41 10/08/17 14:41 10/08/17 14:41 10/08/17 14:41 10/08/17 14:41 Vital Signs Reviewed: Yes - [place] Coma Scale Coma Scale Total: 15 Diagnostics - Vital Signs Vital Signs Temp Pulse Resp BP Pulse Ox 10/08/17 14:41 97.2 F 105 19 99/71 95 - Laboratory Lab Results: Lab Results 10/08/17 10/08/17 Range/Units 15:07 15:15 Urine Color Yellow Urine Appearance Cloudy Urine pH 5.0 (5-9) Ur Specific [place] 1.013 (1.010-1.030) Urine Protein Negative (Negative) Urine Ketones Negative (Negative) Urine Blood 1+ H (Negative) Urine Nitrate Positive H (Negative) Urine Bilirubin Negative (Negative) Urine Urobilinogen Negative (Negative) Ur Leukocyte Esterase 3+ H (Negative) Urine WBC (Auto) 3+(>20/hpf) H (Absent) Urine RBC (Auto) 2+(6-10/hpf) H (Absent) Ur Squamous Epith Cells Present H (Absent) Ur Transition Epith Cell Present H (Absent) Urine Bacteria 1+ H (Absent) Urine Glucose Negative (Negative) C.trachomatis (Amp Det) Negative (Negative) N.gonorrhoeae (Amp Det) Negative (Negative) T.vaginalis (Amp Det) Negative (Negative) Lab Statement: Any lab studies that have been ordered have been reviewed, and results considered in the medical decision making process. Re-Evaluation - Re-Evaluation 1525 Re-Evaluation Time: 15:25 Change: Unchanged Comment: We discussed the discharge plan with the patient. Pt was agreeable with the plan. GIGU Course/Dx - Course Course Of Treatment: The pt presents [place] [facility] [place] with a chief complaint of vaginal discharge and an malodorous urine. Pt was previously dx with bacterial vaginosis. A urinanalysis and pelvic physcial exam was done. Pt is s/p hysterectomy so there is no concern for . The pt will be dx with bacterial vaginosis and UTI. She will be treated empirically with Flagyl vaginal gel, and Bactrim, pending culture results. - Diagnoses Differential Diagnoses - Female: Candidiasis, Urinary Tract Infection, Vaginitis , Other - bacterial vaginosis Provider Diagnoses: Bacterial vaginosis, UTI (urinary tract infection) Discharge - Discharge Plan Condition: Stable Disposition: HOME Prescriptions: Ciprofloxacin TAB* [Cipro 500 MG TAB*] 500 mg PO BID #14 tab metroNIDAZOLE VAGINAL 0.75%* 1 applic VAGINAL BEDTIME #1 tube Patient Education Materials: Bacterial Vaginosis (ED), Urinary Tract Infection in Women (ED) Referrals: Susan Morris MD [Medical Doctor] - If Needed Cedric Elizabeth DO [Primary Care Provider] - 1 Week Additional Instructions: We have treated you empirically for bacterial vaginosis and a UTI with Flagyl vaginal gel and Bactrim. We have sent the cultures. We will notify you if you need further treatment based on these results. Return to the ER if you have any new or worsening symptoms. The documentation as recorded by the Carmen aguirre Abhishek accurately reflects the service I personally performed and the decisions made by , Isamar Nevarez MD.
== END 2017-10-08 15:42 | disposition home or self-care (01) ==
LOC: ED 14:36
DX: N76.0 Acute vaginitis (principal); N39.0 Urinary tract infection, site not specified; Z90.710 Acquired absence of both cervix and uterus; M06.9 Rheumatoid arthritis, unspecified; F17.290 Nicotine dependence, other tobacco product, uncomplicated; F17.210 Nicotine dependence, cigarettes, uncomplicated; Z88.6 Allergy status to analgesic agent; Z88.0 Allergy status to penicillin
CPT/HCPCS: 81003; 81015; 87077; 87086; 87186; 87480; 87491; 87510; 87591; 87661; 99282

== ENCOUNTER 2017-11-18 11:07 | Emergency (ER) | payer OTHER ==
[2017-11-18 11:51] LABS: Urine Appearance Clear; Urine Blood 1+ (Negative); Urine Color Yellow; Urine Ketones Negative (Negative); Urine Protein Negative (Negative); Urine Specific Gravity 1.012 (1.010-1.030); Urine Urobilinogen Negative (Negative)
[2017-11-18 12:06] LABS: ABS Basophils 0.1 10^3/ul (0-0.2); ABS Eosinophils 0.1 10^3/ul (0-0.6); ABS Lymphocytes 2.2 10^3/ul (1.0-4.8); ABS Monocytes 0.7 10^3/ul (0-0.8); ABS Nucleated RBC 0 10^3/ul; Eosinophil % 1.5 % (0-6); Hematocrit 41 % (35-47); Hemoglobin 14.1 g/dl (12.0-16.0); Lymphocyte % 27.4 % (25-47); Mean Corpuscular HGB Conc 35 g/dl (31-36); Mean Corpuscular Hemoglobin 31 pg (27-31); Mean Corpuscular Volume 90 fL (80-97); Mean Platelet Volume 8 um3 (7.4-10.4); Nucleated Red Blood Cells % 0.1; Platelet Count 247 10^3/ul (150-450); Red Blood Count 4.56 10^6/ul (4.0-5.4); Red Cell Distribution Width 13 % (10.5-15); White Blood Count 8.1 10^3/ul (3.5-10.8)
[2017-11-18 12:23] LABS: EGFR Non-African American 76.7 (>60)
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
[2017-11-18 17:08] VITALS: BP 115/80
== END 2017-11-18 17:03 | disposition home or self-care (01) ==
LOC: ED 11:07
DX: F32.9 Major depressive disorder, single episode, unspecified (principal); Z88.8 Allergy status to other drugs, medicaments and biological substances; Z88.0 Allergy status to penicillin; F14.10 Cocaine abuse, uncomplicated; F11.10 Opioid abuse, uncomplicated; F17.210 Nicotine dependence, cigarettes, uncomplicated; M06.9 Rheumatoid arthritis, unspecified; Z79.899 Other long term (current) drug therapy
CPT/HCPCS: 36415; 80053; 80307; 80320; 80329; 81003; 81015; 84443; 85025; 87086; 99284; G0480

== ENCOUNTER 2017-12-29 20:42 | Inpatient (IN) | payer OTHER ==
[2017-12-29 22:04] LABS: ABS Basophils 0.1 10^3/ul (0-0.2); ABS Eosinophils 0.1 10^3/ul (0-0.6); ABS Lymphocytes 3.2 10^3/ul (1.0-4.8); ABS Monocytes 0.7 10^3/ul (0-0.8); ABS Neutrophils 5.3 10^3/ul (1.5-7.7); ABS Nucleated RBC 0 10^3/ul; Eosinophil % 0.8 % (0-6); Hematocrit 40 % (35-47); Lymphocyte % 34.1 % (25-47); Mean Corpuscular HGB Conc 35 g/dl (31-36); Mean Corpuscular Hemoglobin 31 pg (27-31); Mean Corpuscular Volume 89 fL (80-97); Mean Platelet Volume 8.6 um3 (7.4-10.4); Nucleated Red Blood Cells % 0; Platelet Count 279 10^3/ul (150-450); Red Blood Count 4.48 10^6/ul (4.0-5.4); Red Cell Distribution Width 14 % (10.5-15); White Blood Count 9.3 10^3/ul (3.5-10.8)
[2017-12-29 22:22] LABS: EGFR Non-African American 73.7 (>60)
[2017-12-29 23:16] LABS: Urine Appearance Clear; Urine Blood 2+ (Negative); Urine Color Yellow; Urine Ketones Negative (Negative); Urine Protein Negative (Negative); Urine Specific Gravity 1.003 (1.010-1.030); Urine Urobilinogen Negative (Negative)
[2017-12-30] MEDS ORDERED: Potassium Chlor TAB* 20 MEQ TAB.ER PO ONE (01:03)
--- NOTE | 2017-12-30 03:39 | ED ---
Cammy Mack Rebecca, scribed for Cristopher Lechuga MD on 12/29/17 at 2133 . Psychiatric Complaint - HPI Summary HPI Summary: Pt is a 37 y/o F BIBA who presents to ED due to depression with SIs. Pt reports that she is "dealing with too much" and that is why she presents today. Denies any suicidal or homicidal plans. Prior similar episodes, though she reports today is "really really bad." PMHx depression with prior suicidal attempts. - History Of Current Complaint Chief Complaint: EDMentalHealth Time Seen by Provider: 12/29/17 21:20 Hx Obtained From: Patient Hx Last Menstrual Period: hysterectomy Onset/Duration: Still Present Character: Depressed Aggravating Factor(s): Other - "dealing with too much" Alleviating Factor(s): Nothing Associated Signs And Symptoms: Positive: Negative Related History: Positive For: Prior Psychiatric Issues - Depression Has Suicidal: Denies: With A Plan Has Homicidal: Denies: With A Plan - Allergies/Home Medications Allergies/Adverse Reactions: Allergies Allergy/AdvReac Type Severity Reaction Status Date / Time aspirin Allergy Vomiting Verified 12/29/17 21:05 latex Allergy Hives Verified 12/29/17 21:05 Penicillins Allergy Vomiting Verified 12/29/17 21:05 PMH/Surg Hx/FS Hx/Imm Hx Endocrine/Hematology History: Reports: Hx Anemia - IN THE PAST, NOT AT CURRENT TIME Denies: Hx Anticoagulant Therapy, Hx Diabetes, Hx Systemic Lupus Erythematosus, Hx Thyroid Disease Cardiovascular History: Reports: Other Cardiovascular Problems/Disorders - murmur Denies: Hx Congestive Heart Failure, Hx Hypertension Respiratory History: Reports: Hx Asthma - childhood-STATES OUTGREW Denies: Hx Chronic Obstructive Pulmonary Disease (COPD), Hx Lung Cancer, Hx Pneumonia, Hx Pulmonary Embolism, Other Respiratory Problems/Disorders GI History: Reports: Hx Irritable Bowel - PROBLEMS WITH CONSTIPATION, Other GI Disorders - GASTRITIS Denies: Hx Gall Bladder Disease, Hx Gastrointestinal Bleed, Hx Ulcer, Hx Urosepsis History: Reports: Hx Kidney Stones Denies: Hx Dialysis, Hx Renal Disease Musculoskeletal History: Reports: Hx Rheumatoid Arthritis - PMR, Hx Fibromyalgia Sensory History: Reports: Hx Contacts or Glasses - GLASSES Denies: Hx Hearing Aid Opthamlomology History: Reports: Hx Contacts or Glasses - GLASSES Neurological History: Reports: Hx Headaches - AT TIMES-TREATS WITH REST- TREATS WITH IBUPROFEN OR TYLENOL, Hx Migraine, Other Neuro Impairments/Disorders - ON MEDICATION FOR Denies: Hx Dementia, Hx Seizures, Hx Transient Ischemic Attacks (TIA) Psychiatric History: Reports: Hx Anxiety - ON MEDICATION, Hx Depression - ON MEDICATION FOR Denies: Hx Eating Disorder, Hx Schizophrenia, Hx Bipolar Disorder - Cancer History Hx Chemotherapy: No - Surgical History Surgery Procedure, Year, and Place: TUBAL LIGATION- 2013- [facility] [place]. ORAL SURGERY- OFFICE. Hysterectomy 2016 Hx Anesthesia Reactions: No - Immunization History Date of Tetanus Vaccine: PT STATES UNSURE Date of Influenza Vaccine: has not received Infectious Disease History: Yes Infectious Disease History: Reports: Hx of Known/Suspected MRSA - R hip Denies: Hx Clostridium Difficile, Hx Hepatitis, Hx Human Immunodeficiency Virus (HIV), Hx Shingles, Hx Tuberculosis, History Other Infectious Disease, Traveled Outside the [place] in Last 30 Days - Family History Known Family History: Positive: Cardiac Disease, Diabetes, Other - Fibromyalgia - Social History Alcohol Use: Rare Hx Substance Use: No Substance Use Type: Reports: Cocaine Substance Use Comment - Amount & Last Used: rarely per pt repot Smoking Status (MU): Heavy Every Day Tobacco Smoker Type: Cigarettes Amount Used/How Often: 2 cigars/day Length of Time of Smoking/Using Tobacco: 15 YEARS Have You Smoked in the Last Year: Yes Review of Systems Negative: Fever Positive: Depressed - with SIs, Other - NEGATIVE: suicidal or homicidal plans All Other Systems Reviewed And Are Negative: Yes Physical Exam - Summary Physical Exam Summary: VITAL SIGNS: Reviewed. GENERAL: ~Patient is a well-developed and nourished female who is lying comfortable in the stretcher. Patient is not in any acute respiratory distress. HEAD AND FACE: No signs of trauma. No ecchymosis, hematomas or skull depressions. No sinus tenderness. EYES: PERRLA, EOMI x 2, No injected conjunctiva, no nystagmus. EARS: Hearing grossly intact. Ear canals and tympanic membranes are within normal limits. MOUTH: Oropharynx within normal limits. NECK: Supple, trachea is midline, no adenopathy, no JVD, no carotid bruit, no c- spine tenderness, neck with full ROM. CHEST: Symmetric, no tenderness at palpation LUNGS: Clear to auscultation bilaterally. No wheezing or crackles. CVS: Regular rate and rhythm, S1 and S2 present, no murmurs or gallops appreciated. EXTREMITIES: FROM in all major joints, no edema, no cyanosis or clubbing. NEURO: Alert and oriented x 3. No acute neurological deficits. Speech is normal and follows commands. SKIN: Dry and warm Triage Information Reviewed: Yes Vital Signs On Initial Exam: Initial Vitals Temp Pulse Resp BP Pulse Ox 97.4 F 92 16 94/75 98 12/29/17 20:50 12/29/17 20:50 12/29/17 20:50 12/29/17 20:50 12/29/17 20:50 Vital Signs Reviewed: Yes Diagnostics - Vital Signs Vital Signs Temp Pulse Resp BP Pulse Ox 12/29/17 20:50 97.4 F 92 16 94/75 98 - Laboratory Result Diagrams: 12/29/17 21:51 12/29/17 21:51 Lab Statement: Any lab studies that have been ordered have been reviewed, and results considered in the medical decision making process. Course/Dx - Course Assessment/Plan: Pt is a 37 y/o F BIBA who presents to ED due to depression with SIs. Pt reports that she is "dealing with too much" and that is why she presents today. Denies any suicidal or homicidal plans. Prior similar episodes, though she reports today is "really really bad." PMHx depression with prior suicidal attempts. Medically cleared for [facility] at 0102. Upon completion of [facility] and consultation with Dr. Lara, it has been determined that the pt will be admitted with Dx of depression. Allergies noted. - Differential Dx/Clinical Impression Provider Diagnosis: Depression Discharge - Sign-Out/Discharge Documenting (check all that apply): Discharge - Admission to [facility] [place] psych - Discharge Plan Condition: Stable Disposition: PSYCHIATRIC FACILITY-[facility] [place] Referrals: Cedric Elizabeth DO [Primary Care Provider] - The documentation as recorded by the Cammy aguirre Rebecca accurately reflects the service I personally performed and the decisions made by me, Cristopher Lechuga MD.
[2017-12-30] MEDS ORDERED: Nicotine GUM* 2 MG ONE (06:35)
[2017-12-30] MEDS ORDERED: Nicotine GUM* 2 MG PO PRN (10:35)
[2017-12-30] MEDS ORDERED: Al Hydrox/Mg Hydrox/Simet LIQ* 30 ML UDC PO PRN (10:35)
[2017-12-30] MEDS: Vitamin THERAPEUTIC TAB PO SCH (11:19)
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
[2017-12-30] MEDS: Prazosin CAP* 1 MG PO SCH ×2 (22:31→22:44)
[2017-12-31] MEDS: Vitamin THERAPEUTIC TAB PO SCH (07:59)
[2017-12-31] MEDS: Methylphenidate ER 27 MG TAB PO SCH (07:59)
[2017-12-31] MEDS: Omeprazole CAP* 20 MG PO SCH (07:59)
[2017-12-31] MEDS: Acetaminophen TAB* 325 MG PO PRN ×2 (08:00→20:50)
[2017-12-31] MEDS ORDERED: ATOMOXETINE 40 MG PO SCH (09:00)
--- NOTE | 2017-12-31 16:28 | PN ---
Subjective - Subjective Subjective: Mood remains depressed, feels easily upset with crying spells. Slept about 5 hours. She did not receive first dose of Prazosin because BP was low. She denies SI or urges for sib or A/VH and she contracts for safety. Per staff, she is adherent o unit's routines. Objective - Appearance Appearance: Healthy Appearing Dysmorphic Features: No Hygiene: Normal Grooming: Well Kept - Behavior Psychomotor Activities: Normal Exhibits Abnormal Movement: No - Attitude and Relatedness Attitude and Relatedness: Cooperative Eye Contact: Fair - Speech Quality: Unpressured Latencies: Normal Quantity: Appropriate - Mood Patient's Decription of Mood: "Sad" - Affect Observed Affect: Labile Affect Consistent with: Dysphoria - Thought Process Patient's Thought Process: Coherent, Goal Directed Thought Content: No Passive Wish, No Suicidal Planning, No Homicidal Ideation, No Paranoid Ideation - Sensorium Experiencing Hallucinations: No, Sensorium is Clear - Level of Consciousness Level of Consciousness: Alert Orientation: Yes Intact - Impulse Control Impulse Control: Intact - Insight and Judgement Insight and Judgement: Fair - Group Participation Particating in Group Activities: Yes - Medication Management Medication Management Adherence: Yes Assessment - Assessment Merits Inpatient Hospitalization: For Ongoing Evaluation, Consolidate Improvements, For Discharge Planning Inpatient DSM-V Dx: F43.10 Clinical Impression: In intact behavioral control but continues to endorse high level of distress. Denies suicidality and contracts for safety . Minipress was not given because of low BP. She needs continued admission for stabilization. Plan - Plan Treatment Plan: Name: ANDRÉS SUAREZ Birthdate: 1980 [id number] Medications: Current Medications Acetaminophen (Tylenol Tab*) 650 mg PO Q4H PRN PRN Reason: PAIN or TEMP > 101 F Last Admin: 12/31/17 08:00 Dose: 650 mg Al Hydrox/Mg Hydrox/Simethicone (Maalox Plus*) 30 ml PO Q4H PRN PRN Reason: INDIGESTION Atomoxetine HCl (Strattera (Nf)) 80 mg PO QAM [facility] Cyclobenzaprine HCl (Flexeril Tab*) 10 mg PO TID PRN PRN Reason: PAIN Methylphenidate HCl (Concerta) 27 mg PO DAILY [facility] Last Admin: 12/31/17 07:59 Dose: 27 mg Multivitamins (Theragran Tab*) 1 tab PO DAILY [facility] Last Admin: 12/31/17 07:59 Dose: 1 tab Nicotine Polacrilex (Nicotine Gum*) 2 mg PO Q2H PRN PRN Reason: CRAVING Omeprazole (Prilosec Cap*) 20 mg PO QAM [facility] Last Admin: 12/31/17 07:59 Dose: 20 mg Prazosin HCl (Minipress Cap*) 1 mg PO BEDTIME [facility] Last Admin: 12/30/17 22:44 Dose: Not Given - Discharge Plan Discharge Plan: Outpatient Follow Up Outpatient Program: [facility]
[2017-12-31] MEDS: Prazosin CAP* 1 MG PO SCH ×2 (20:50→21:35)
[2018-01-01] MEDS: CMC: Atomoxetine (NF) 40 MG CAP PO SCH (08:36)
[2018-01-01] MEDS: Vitamin THERAPEUTIC TAB PO SCH (08:37)
[2018-01-01] MEDS: Methylphenidate ER 27 MG TAB PO SCH (08:37)
[2018-01-01] MEDS: Omeprazole CAP* 20 MG PO SCH (08:37)
[2018-01-01] MEDS: Prazosin CAP* 1 MG PO SCH (20:52)
[2018-01-01] MEDS: Acetaminophen TAB* 325 MG PO PRN (20:54)
[2018-01-02] MEDS: Vitamin THERAPEUTIC TAB PO SCH (08:48)
[2018-01-02] MEDS: Acetaminophen TAB* 325 MG PO PRN (08:48)
[2018-01-02] MEDS: Methylphenidate ER 27 MG TAB PO SCH (08:49)
[2018-01-02] MEDS: Omeprazole CAP* 20 MG PO SCH (08:49)
[2018-01-02] MEDS: CMC: Atomoxetine (NF) 40 MG CAP PO SCH (08:49)
--- NOTE | 2018-01-02 14:05 | PN ---
Subjective - Subjective Date of Service: 01/02/18 Service Type: [id number] Hosp care 15 min low complexity Subjective: Dora is very happy to be here. She feels like she is learning a lot from groups. She continues to endorse wanting to learn how to say "no". I offer the suggestion that she might consider going to Rehab to painter more skills. She is agreeable. She is interested in getting Social Security Disability. I reflect back to her that she seems able to work. She reminds me that she has bulging discs and degenerative disc disease which she asserts will get worse and require surgery, which could cause paralysis, should she return to work. Objective - Appearance Appearance: Healthy Appearing Hygiene: Normal Grooming: Well Kept - Behavior Psychomotor Activities: Normal Exhibits Abnormal Movement: No - Attitude and Relatedness Attitude and Relatedness: Well Related Eye Contact: Good - Speech Quality: Unpressured Latencies: Normal Quantity: Appropriate - Mood Patient's Decription of Mood: "Good" - Affect Observed Affect: Tearful Affect Consistent with: Dysphoria - Thought Process Patient's Thought Process: Coherent Thought Content: No Passive Wish, No Suicidal Planning, No Homicidal Ideation, No Paranoid Ideation - Sensorium Experiencing Hallucinations: No, Sensorium is Clear Type of Hallucinations: Visual: No, Auditory: No, Command: No - Level of Consciousness Level of Consciousness: Alert Orientation: Yes Intact, Yes Orientated to Time, Yes Orientated to Place, Yes Orientated to Person - Impulse Control Impulse Control: Impaired - Insight and Judgement Insight and Judgement: Fair - Group Participation Particating in Group Activities: Yes - Medication Management Medication Management Adherence: Yes - Additional Observations Comments: Well groomed and smiling. Dora appears confident that she has made the right choice to be here. She is thinking clearly and is goal directed. Assessment - Assessment Merits Inpatient Hospitalization: For Stabilization Inpatient DSM-V Dx: F43.10 Clinical Impression: 37-y.o. white, single female with two children not in her custody who comes to the hospital with plans to end her life by stepping in front of a car. On the unit, she feels better quickly, although she also agrees that she needs more care in a different setting. She is agreeable to rehab, which would be a good choice, although she has not admitted the full extent of her use. Plan - Plan Treatment Plan: Name: DORA SUAREZ Birthdate: 1980 [id number] Continued Medication Management: Start Medication Medications: Current Medications Acetaminophen (Tylenol Tab*) 650 mg PO Q4H PRN PRN Reason: PAIN or TEMP > 101 F Last Admin: 01/02/18 08:48 Dose: 650 mg Al Hydrox/Mg Hydrox/Simethicone (Maalox Plus*) 30 ml PO Q4H PRN PRN Reason: INDIGESTION Atomoxetine HCl (Strattera (Nf)) 80 mg PO QAM [facility] Last Admin: 01/02/18 08:49 Dose: 80 mg Cyclobenzaprine HCl (Flexeril Tab*) 10 mg PO TID PRN PRN Reason: PAIN Methylphenidate HCl (Concerta) 27 mg PO DAILY [facility] Last Admin: 01/02/18 08:49 Dose: 27 mg Multivitamins (Theragran Tab*) 1 tab PO DAILY [facility] Last Admin: 01/02/18 08:48 Dose: 1 tab Nicotine Polacrilex (Nicotine Gum*) 2 mg PO Q2H PRN PRN Reason: CRAVING Omeprazole (Prilosec Cap*) 20 mg PO QAM [facility] Last Admin: 01/02/18 08:49 Dose: 20 mg Prazosin HCl (Minipress Cap*) 1 mg PO BEDTIME [facility] Last Admin: 01/01/18 20:52 Dose: 1 mg - Discharge Plan Discharge Plan: Drug/Alcohol Rehab Additional Comments: Dora has started prazosin, which has offered her some relief and more continuous sleep. She feels like she is more solid here and that she came to the right place. She is interested in going to rehab following this stay.
[2018-01-02] MEDS: Prazosin CAP* 1 MG PO SCH (20:27)
[2018-01-03] MEDS: CMC: Atomoxetine (NF) 40 MG CAP PO SCH (07:28)
[2018-01-03] MEDS: Vitamin THERAPEUTIC TAB PO SCH (07:28)
[2018-01-03] MEDS: Omeprazole CAP* 20 MG PO SCH (07:28)
[2018-01-03] MEDS: Methylphenidate ER 27 MG TAB PO SCH (07:28)
[2018-01-03] MEDS: Acetaminophen TAB* 325 MG PO PRN ×2 (07:29→16:38)
--- NOTE | 2018-01-03 11:24 | PN ---
MHU: Group Therapy Note - Service Type Service Type: 75037 Group Psychotherapy - Cognitive Behavioral Group Therapy ( CBT):Patient was attentive and participatory in CBT programming this morning, and remained in good behavioral control. Patient expressed positive insights regarding relevant treatment interventions and goals.
[2018-01-03] MEDS ORDERED: Linezolid TAB* 600 MG PO SCH (12:00)
--- NOTE | 2018-01-03 16:32 | PN ---
Subjective - Subjective Date of Service: 01/03/18 Service Type: [id number] Hosp care 25 min moderate complexity Subjective: Dora talked about agreeing to go to rehab--apparently she thought it was a physical rehab for her back. nevertheless, she is willing to follow up with a drug and alcohol rehab once it was framed as a place she could learn new skills and learn how to say "No," which she has been asking for. Dora is quite agreeable to most suggestions and is motivated by her children. Objective - Appearance Appearance: Healthy Appearing Dysmorphic Features: No Hygiene: Normal Grooming: Well Kept - Behavior Psychomotor Activities: Normal Exhibits Abnormal Movement: No - Attitude and Relatedness Attitude and Relatedness: Well Related Eye Contact: Good - Speech Quality: Unpressured Latencies: Normal Quantity: Appropriate - Mood Patient's Decription of Mood: "Good" - Affect Observed Affect: Good Affect Consistent with: Euthymia - Thought Process Patient's Thought Process: Coherent Thought Content: No Passive Wish, No Suicidal Planning, No Homicidal Ideation, No Paranoid Ideation - Sensorium Experiencing Hallucinations: No, Sensorium is Clear Type of Hallucinations: Visual: No, Auditory: No, Command: No - Level of Consciousness Level of Consciousness: Alert Orientation: Yes Intact, Yes Orientated to Time, Yes Orientated to Place, Yes Orientated to Person - Impulse Control Impulse Control: Impaired - Insight and Judgement Insight and Judgement: Impaired - Group Participation Particating in Group Activities: Yes - Medication Management Medication Management Adherence: Yes - Additional Observations Comments: Well groomed and smiling. Dora appears confident that she has made the right choice to be here. She is thinking clearly and is goal directed. Assessment - Assessment Merits Inpatient Hospitalization: For Immediate Safety Inpatient DSM-V Dx: F43.10 Clinical Impression: 37-y.o. white, single female with two children not in her custody who comes to the hospital with plans to end her life by stepping in front of a car. On the unit, she feels better quickly, although she also agrees that she needs more care in a different setting. She is agreeable to rehab, which would be a good choice, although she has not admitted the full extent of her use. She continues to feel as if she needs more care, albeit in a setting that may challenge her to admit that she has an alcohol and drug problem. Plan - Plan Treatment Plan: Name: DORA SUAREZ Birthdate: 1980 [id number] Medications: Current Medications Acetaminophen (Tylenol Tab*) 650 mg PO Q4H PRN PRN Reason: PAIN or TEMP > 101 F Last Admin: 01/03/18 07:29 Dose: 650 mg Al Hydrox/Mg Hydrox/Simethicone (Maalox Plus*) 30 ml PO Q4H PRN PRN Reason: INDIGESTION Atomoxetine HCl (Strattera (Nf)) 80 mg PO QAM [facility] Last Admin: 01/03/18 07:28 Dose: 80 mg Cyclobenzaprine HCl (Flexeril Tab*) 10 mg PO TID PRN PRN Reason: PAIN Glycerin (Glycerin Adult Supp*) 1 supp [place] DAILY PRN PRN Reason: CONSTIPATION Methylphenidate HCl (Concerta) 27 mg PO DAILY [facility] Last Admin: 01/03/18 07:28 Dose: 27 mg Multivitamins (Theragran Tab*) 1 tab PO DAILY [facility] Last Admin: 01/03/18 07:28 Dose: 1 tab Nicotine Polacrilex (Nicotine Gum*) 2 mg PO Q2H PRN PRN Reason: CRAVING Omeprazole (Prilosec Cap*) 20 mg PO QAM [facility] Last Admin: 01/03/18 07:28 Dose: 20 mg Prazosin HCl (Minipress Cap*) 1 mg PO BEDTIME [facility] Last Admin: 01/02/18 20:27 Dose: 1 mg - Discharge Plan Discharge Plan: Drug/Alcohol Rehab Additional Comments: Dora has started prazosin, which has offered her some relief and more continuous sleep. She feels like she is more solid here and that she came to the right place. She is interested in going to rehab following this stay to address her inability to tell people that she doesn't agree with them or their assertions. She also would like to have more ability to tell people that she doesn't want to do what they ask of her.
[2018-01-03] MEDS: Prazosin CAP* 1 MG PO SCH (20:44)
[2018-01-04] MEDS: Cyclobenzaprine TAB* 10 MG PO PRN ×3 (08:36→20:42)
[2018-01-04] MEDS: Omeprazole CAP* 20 MG PO SCH (08:38)
[2018-01-04] MEDS: Vitamin THERAPEUTIC TAB PO SCH (08:38)
[2018-01-04] MEDS: CMC: Atomoxetine (NF) 40 MG CAP PO SCH (08:38)
[2018-01-04] MEDS: Methylphenidate ER 27 MG TAB PO SCH (08:38)
--- NOTE | 2018-01-04 14:41 | PN ---
Subjective - Subjective Date of Service: 01/04/18 Service Type: [id number] Hosp care 15 min low complexity Subjective: Dora is not eager to go to drug and alcohol rehab, but she is eager to learn what they have to teach her; thus she is quite willing. She feels like she makes the wrong choices all the time with men and that leaves her vulnerable to saying yes to the wrong things, such as drugs and alcohol. She believes she has an "addictive personality" and is frustrated with that. She is also frustrated with having so much physical pain. She has been labeled a drug seeker, although she has had legitimate problems, such as a prolapsed uterus, that were not treated as they should have been. Objective - Appearance Appearance: Healthy Appearing Dysmorphic Features: No Hygiene: Normal Grooming: Well Kept - Behavior Psychomotor Activities: Normal Exhibits Abnormal Movement: No - Attitude and Relatedness Attitude and Relatedness: Well Related Eye Contact: Good - Speech Quality: Unpressured Latencies: Normal Quantity: Appropriate - Mood Patient's Decription of Mood: "Okay" - Affect Observed Affect: Tearful Affect Consistent with: Dysphoria - Thought Process Patient's Thought Process: Coherent Thought Content: No Passive Wish, No Suicidal Planning, No Homicidal Ideation - Sensorium Experiencing Hallucinations: No, Sensorium is Clear Type of Hallucinations: Visual: No, Auditory: No, Command: No - Level of Consciousness Level of Consciousness: Alert Orientation: Yes Intact, Yes Orientated to Time, Yes Orientated to Place, Yes Orientated to Person - Impulse Control Impulse Control: Impaired - Insight and Judgement Insight and Judgement: Fair - Group Participation Particating in Group Activities: Yes - Medication Management Medication Management Adherence: Yes - Additional Observations Comments: Well groomed and smiling. Dora appears confident that she has made the right choice to be here. She is thinking clearly and is goal directed. She is no longer suicidal. Thought content is focused on pain. Assessment - Assessment Inpatient DSM-V Dx: F43.10 Clinical Impression: 37-y.o. white, single female with two children not in her custody who comes to the hospital with plans to end her life by stepping in front of a car. On the unit, she feels better quickly, although she also agrees that she needs more care in a different setting. She is agreeable to rehab, which would be a good choice, although she has not admitted the full extent of her use. She continues to feel as if she needs more care, albeit in a setting that may challenge her to admit that she has an alcohol and drug problem. She is also hoping to gain insight into why she chooses men who lead her to drugs and alcohol. Plan - Plan Treatment Plan: Name: DORA SUAREZ Birthdate: 1980 [id number] Medications: Current Medications Acetaminophen (Tylenol Tab*) 650 mg PO Q4H PRN PRN Reason: PAIN or TEMP > 101 F Last Admin: 01/03/18 16:38 Dose: 650 mg Al Hydrox/Mg Hydrox/Simethicone (Maalox Plus*) 30 ml PO Q4H PRN PRN Reason: INDIGESTION Atomoxetine HCl (Strattera (Nf)) 80 mg PO QAM [facility] Last Admin: 01/04/18 08:38 Dose: 80 mg Cyclobenzaprine HCl (Flexeril Tab*) 10 mg PO TID PRN PRN Reason: PAIN Last Admin: 01/04/18 12:28 Dose: 10 mg Glycerin (Glycerin Adult Supp*) 1 supp [place] DAILY PRN PRN Reason: CONSTIPATION Methylphenidate HCl (Concerta) 27 mg PO DAILY [facility] Last Admin: 01/04/18 08:38 Dose: 27 mg Multivitamins (Theragran Tab*) 1 tab PO DAILY [facility] Last Admin: 01/04/18 08:38 Dose: 1 tab Nicotine Polacrilex (Nicotine Gum*) 2 mg PO Q2H PRN PRN Reason: CRAVING Omeprazole (Prilosec Cap*) 20 mg PO QAM [facility] Last Admin: 01/04/18 08:38 Dose: 20 mg Prazosin HCl (Minipress Cap*) 1 mg PO BEDTIME [facility] Last Admin: 01/03/18 20:44 Dose: 1 mg - Discharge Plan Discharge Plan: Drug/Alcohol Rehab Additional Comments: Dora has started prazosin, which has offered her some relief and more continuous sleep. She feels like she is more solid here and that she came to the right place. She is interested in going to rehab following this stay to address her inability to tell people that she doesn't agree with them or their assertions. She also would like to have more ability to tell people that she doesn't want to do what they ask of her. To effect these changes, Dora has agreed to go to drug and alcohol rehab.
[2018-01-04] MEDS: Prazosin CAP* 1 MG PO SCH (20:42)
[2018-01-04] MEDS: Acetaminophen TAB* 325 MG PO PRN (20:43)
[2018-01-05] MEDS: CMC: Atomoxetine (NF) 40 MG CAP PO SCH (07:37)
[2018-01-05] MEDS: Cyclobenzaprine TAB* 10 MG PO PRN ×3 (07:38→20:24)
[2018-01-05] MEDS: Vitamin THERAPEUTIC TAB PO SCH (07:38)
[2018-01-05] MEDS: Omeprazole CAP* 20 MG PO SCH (07:38)
[2018-01-05] MEDS: Methylphenidate ER 27 MG TAB PO SCH (07:38)
[2018-01-05] MEDS: Acetaminophen TAB* 325 MG PO PRN ×2 (07:39→12:21)
--- NOTE | 2018-01-05 11:13 | PN ---
MHU: Group Therapy Note - Service Type Service Type: [id number] Group Psychotherapy - Cognitive Behavioral Group Therapy ( CBT):Patient was attentive and participatory in CBT programming this morning, and remained in good behavioral control. Patient expressed positive insights regarding relevant treatment interventions and goals.
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
--- NOTE | 2018-01-05 16:10 | PN ---
Subjective - Subjective Date of Service: 01/05/18 Service Type: [id number] Hosp care 15 min low complexity Objective - Additional Observations Comments: Well groomed and smiling. Dora appears confident that she has made the right choice to be here. She is thinking clearly and is goal directed. She is no longer suicidal. Thought content is focused on pain. Assessment - Assessment Inpatient DSM-V Dx: F43.10 Clinical Impression: 37-y.o. white, single female with two children not in her custody who comes to the hospital with plans to end her life by stepping in front of a car. On the unit, she feels better quickly, although she also agrees that she needs more care in a different setting. She is agreeable to rehab, which would be a good choice, although she has not admitted the full extent of her use. She continues to feel as if she needs more care, albeit in a setting that may challenge her to admit that she has an alcohol and drug problem. She is also hoping to gain insight into why she chooses men who lead her to drugs and alcohol. Plan - Plan Treatment Plan: Name: DORA SUAREZ Birthdate: 1980 [id number] Medications: Current Medications Acetaminophen (Tylenol Tab*) 650 mg PO Q4H PRN PRN Reason: PAIN or TEMP > 101 F Last Admin: 01/05/18 12:21 Dose: 650 mg Al Hydrox/Mg Hydrox/Simethicone (Maalox Plus*) 30 ml PO Q4H PRN PRN Reason: INDIGESTION Atomoxetine HCl (Strattera (Nf)) 80 mg PO QAM [facility] Last Admin: 01/05/18 07:37 Dose: 80 mg Cyclobenzaprine HCl (Flexeril Tab*) 10 mg PO TID PRN PRN Reason: PAIN Last Admin: 01/05/18 12:20 Dose: 10 mg Glycerin (Glycerin Adult Supp*) 1 supp UT DAILY PRN PRN Reason: CONSTIPATION Methylphenidate HCl (Concerta) 27 mg PO DAILY [facility] Last Admin: 01/05/18 07:38 Dose: 27 mg Multivitamins (Theragran Tab*) 1 tab PO DAILY [facility] Last Admin: 01/05/18 07:38 Dose: 1 tab Nicotine Polacrilex (Nicotine Gum*) 2 mg PO Q2H PRN PRN Reason: CRAVING Omeprazole (Prilosec Cap*) 20 mg PO QAM [facility] Last Admin: 01/05/18 07:38 Dose: 20 mg Prazosin HCl (Minipress Cap*) 1 mg PO BEDTIME [facility] Last Admin: 01/04/18 20:42 Dose: 1 mg - Discharge Plan Additional Comments: Dora has started prazosin, which has offered her some relief and more continuous sleep. She feels like she is more solid here and that she came to the right place. She is interested in going to rehab following this stay to address her inability to tell people that she doesn't agree with them or their assertions. She also would like to have more ability to tell people that she doesn't want to do what they ask of her. To effect these changes, Dora has agreed to go to drug and alcohol rehab.
--- NOTE | 2018-01-05 16:18 | PN ---
MHU: Group Therapy Note - Service Type Service Type: 31010 Group Psychotherapy - Medication Education Group: Patient attended group and presented with flat affect that did not vary with discussion. Although responsive to direct prompts to respond to questions, patient did not engage in spontaneous conversation.
[2018-01-05] MEDS: Glycerin ADULT SUPP PR PRN (17:39)
[2018-01-05] MEDS: Prazosin CAP* 1 MG PO SCH (20:23)
[2018-01-06] MEDS: Cyclobenzaprine TAB* 10 MG PO PRN ×3 (07:57→21:51)
[2018-01-06] MEDS: Vitamin THERAPEUTIC TAB PO SCH (07:57)
[2018-01-06] MEDS: Omeprazole CAP* 20 MG PO SCH (07:57)
[2018-01-06] MEDS: Methylphenidate ER 27 MG TAB PO SCH (07:57)
[2018-01-06] MEDS: CMC: Atomoxetine (NF) 40 MG CAP PO SCH (07:57)
[2018-01-06] MEDS: Lidocaine 4% GEL* 10 GM TUBE TOPICAL SCH ×4 (12:23→21:49)
--- NOTE | 2018-01-06 13:12 | PN ---
MHU: Group Therapy Note - Service Type Service Type: [id number] Group Psychotherapy - Cognitive Behavioral Group Therapy ( CBT):Patient was attentive and participatory in CBT programming this morning, and remained in good behavioral control. Patient expressed positive insights regarding relevant treatment interventions and goals.
[2018-01-06] MEDS: Prazosin CAP* 1 MG PO SCH (21:49)
[2018-01-07] MEDS: Methylphenidate ER 27 MG TAB PO SCH (08:59)
[2018-01-07] MEDS: Vitamin THERAPEUTIC TAB PO SCH (08:59)
[2018-01-07] MEDS: Omeprazole CAP* 20 MG PO SCH (08:59)
[2018-01-07] MEDS: CMC: Atomoxetine (NF) 40 MG CAP PO SCH (08:59)
[2018-01-07] MEDS: Lidocaine 4% GEL* 10 GM TUBE TOPICAL SCH ×4 (09:01→21:57)
[2018-01-07] MEDS: Cyclobenzaprine TAB* 10 MG PO PRN ×3 (09:01→20:36)
[2018-01-07] MEDS: Glycerin ADULT SUPP PR PRN (12:23)
[2018-01-07] MEDS: Acetaminophen TAB* 325 MG PO PRN (13:14)
[2018-01-07] MEDS: Prazosin CAP* 1 MG PO SCH (20:36)
[2018-01-08] MEDS: Acetaminophen TAB* 325 MG PO PRN ×2 (08:01→12:47)
[2018-01-08] MEDS: Cyclobenzaprine TAB* 10 MG PO PRN ×3 (08:02→20:43)
[2018-01-08] MEDS: Omeprazole CAP* 20 MG PO SCH (08:03)
[2018-01-08] MEDS: Methylphenidate ER 27 MG TAB PO SCH (08:03)
[2018-01-08] MEDS: CMC: Atomoxetine (NF) 40 MG CAP PO SCH (08:04)
[2018-01-08] MEDS: Vitamin THERAPEUTIC TAB PO SCH (08:04)
[2018-01-08] MEDS: Lidocaine 4% GEL* 10 GM TUBE TOPICAL SCH ×4 (08:04→20:45)
[2018-01-08] MEDS: Prazosin CAP* 1 MG PO SCH (20:44)
[2018-01-09] MEDS: Omeprazole CAP* 20 MG PO SCH (08:01)
[2018-01-09] MEDS: Methylphenidate ER 27 MG TAB PO SCH (08:01)
[2018-01-09] MEDS: CMC: Atomoxetine (NF) 40 MG CAP PO SCH (08:02)
[2018-01-09] MEDS: Lidocaine 4% GEL* 10 GM TUBE TOPICAL SCH ×4 (08:02→20:33)
[2018-01-09] MEDS: Vitamin THERAPEUTIC TAB PO SCH (08:02)
[2018-01-09] MEDS: Cyclobenzaprine TAB* 10 MG PO PRN ×3 (08:03→20:35)
[2018-01-09] MEDS: Acetaminophen TAB* 325 MG PO PRN ×2 (11:52→20:36)
--- NOTE | 2018-01-09 13:11 | PN ---
MHU: Group Therapy Note - Service Type Service Type: 72158 Group Psychotherapy - Cognitive Behavioral Group Therapy ( CBT):Patient was attentive and participatory in CBT programming this morning, and remained in good behavioral control. Patient expressed positive insights regarding relevant treatment interventions and goals.
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
[2018-01-09] MEDS: Prazosin CAP* 1 MG PO SCH (20:33)
[2018-01-09] MEDS: Glycerin ADULT SUPP PR PRN (20:52)
[2018-01-10] MEDS: Methylphenidate ER 27 MG TAB PO SCH (08:25)
[2018-01-10] MEDS: Vitamin THERAPEUTIC TAB PO SCH (08:25)
[2018-01-10] MEDS: Cyclobenzaprine TAB* 10 MG PO PRN ×2 (08:26→20:48)
[2018-01-10] MEDS: Omeprazole CAP* 20 MG PO SCH (08:26)
[2018-01-10] MEDS: CMC: Atomoxetine (NF) 40 MG CAP PO SCH (08:26)
[2018-01-10] MEDS: Lidocaine 4% GEL* 10 GM TUBE TOPICAL SCH ×4 (08:27→20:46)
--- NOTE | 2018-01-10 11:58 | CONSULT ---
Consult Consult: INPATIENT PAIN CONSULTATION Dora Youngblood is a 37 year old female. She states she has a history of RA diagnosed by her primary care provider but takes no medications for it. She also has a history of fibromyalgia. She describes a history of low back pain for about a year. She thinks she had an x-ray of her lumbar spine but has never had an MRI. She describes it as pain in her back, non radiating. It is worse after standing or sitting for a while, but present most of the time. She has never seen a pain doctor, nor has she had any injections. She has never been to a chiropractor or a physical therapist. She denies any bowel or bladder symptoms , and states she gets pain down her arms or her legs occasionally, but most of the time, the pain is in her back. She is now on BSU for SI PAST MEDICAL HISTORY: Tubal ligation, Anxiety/Depression, ADHD, PTSD, Fibromyalgia. SI. Questionable RA diagnosis ALLERGIES: PCN, latex, ASA Current Medications Acetaminophen (Tylenol Tab*) 650 mg PO Q4H PRN PRN Reason: PAIN or TEMP > 101 F Last Admin: 01/09/18 20:36 Dose: 650 mg Al Hydrox/Mg Hydrox/Simethicone (Maalox Plus*) 30 ml PO Q4H PRN PRN Reason: INDIGESTION Atomoxetine HCl (Strattera (Nf)) 80 mg PO QAM [facility] Last Admin: 01/10/18 08:26 Dose: 80 mg Cyclobenzaprine HCl (Flexeril Tab*) 10 mg PO TID PRN PRN Reason: PAIN Last Admin: 01/10/18 08:26 Dose: 10 mg Glycerin (Glycerin Adult Supp*) 1 supp SC DAILY PRN PRN Reason: CONSTIPATION Last Admin: 01/09/18 20:52 Dose: 1 supp Ibuprofen (Motrin Tab*) 600 mg PO Q6H PRN PRN Reason: PAIN Lidocaine (Topicaine 4% Gel*) 1 applic TOPICAL QID [facility] Last Admin: 01/10/18 08:27 Dose: 1 applic Methylphenidate HCl (Concerta) 27 mg PO DAILY [facility] Last Admin: 01/10/18 08:25 Dose: 27 mg Multivitamins (Theragran Tab*) 1 tab PO DAILY [facility] Last Admin: 01/10/18 08:25 Dose: 1 tab Nicotine Polacrilex (Nicotine Gum*) 2 mg PO Q2H PRN PRN Reason: CRAVING Omeprazole (Prilosec Cap*) 20 mg PO QAM [facility] Last Admin: 01/10/18 08:26 Dose: 20 mg Prazosin HCl (Minipress Cap*) 1 mg PO BEDTIME [facility] Last Admin: 01/09/18 20:33 Dose: 1 mg SOCIAL HISTORY: 1 ppd smoker, rare alcohol, has used illicit drugs including cocaine in the past. [facility] Vital Signs Temp Pulse Resp BP Pulse Ox 97.9 F 98 16 99/63 100 01/10/18 07:26 01/10/18 07:26 01/10/18 10:33 01/10/18 07:26 01/10/18 07:26 EXAM: HEENT: EOMI LUNGS: Clear HEART: Reg rhythm ABDOMEN: Soft + BS UPPER EXTREMITIES: Normal muscle tone. No swelling of joints seen LOWER EXTREMITIES: Mormal tone BACK: Slight scoliosis. Able to bend forward to 35 degrees. With forward flexion , her facet joints move asymmetrically at L1/2 NEUROLOGIC: alert. DTRs 2+ and symmetric in biceps, triceps, brachioradialis, patella tendons and ankle jerks. Muscle strength 5/5 in both upper and lower extremities. GAIT: ambulates without assistive devices. Normal gait ASSESSMENT: 1. Low back pain-facet dysfunction 2. Fibromyalgia PLAN: A referral to a chiropractor or a physical therapist specializing in back pain would be helpful. This can be done on discharge. She is not a good candidate for opioids. Can try to change ibuprofen to Mobic, 7.5 mg once daily if ibuprofen ineffective. She states she was given a compounded cream in the past, but this would not be covered by her current insurance and may not be any more helpful than Ramses-Llamas. I have ordered Ramses-llamas for her. I will follow
[2018-01-10] MEDS: Acetaminophen TAB* 325 MG PO PRN (17:29)
[2018-01-10] MEDS: Prazosin CAP* 1 MG PO SCH (20:46)
[2018-01-10] MEDS: Analgesic BALM* 114 GM TOPICAL SCH (20:46)
[2018-01-11] MEDS: Vitamin THERAPEUTIC TAB PO SCH (09:02)
[2018-01-11] MEDS: Methylphenidate ER 27 MG TAB PO SCH (09:02)
[2018-01-11] MEDS: Analgesic BALM* 114 GM TOPICAL SCH ×2 (09:02→20:43)
[2018-01-11] MEDS: Lidocaine 4% GEL* 10 GM TUBE TOPICAL SCH ×4 (09:02→20:42)
[2018-01-11] MEDS: Omeprazole CAP* 20 MG PO SCH (09:02)
[2018-01-11] MEDS: CMC: Atomoxetine (NF) 40 MG CAP PO SCH (09:03)
[2018-01-11] MEDS: Cyclobenzaprine TAB* 10 MG PO PRN ×3 (09:05→20:41)
--- NOTE | 2018-01-11 11:12 | PN ---
MHU: Group Therapy Note - Service Type Service Type: [id number] Group Psychotherapy - Cognitive Behavioral Group Therapy ( CBT):Patient was attentive and participatory in CBT programming this morning, and remained in good behavioral control. Patient expressed positive insights regarding relevant treatment interventions and goals.
[2018-01-11] MEDS: CMCS: Meloxicam(NF) 7.5 MG TAB PO SCH (14:32)
--- NOTE | 2018-01-11 16:17 | PN ---
Subjective - Subjective Date of Service: 01/11/18 Service Type: [id number] Hosp care 15 min low complexity Subjective: In response to Dr. Argueta's note, I prescribed Mobic, as ibuprofen wasn't working. Dora is eager to go to rehab and would really prefer to go to [place]. She submitted an application on her own. I will report to Jaqueline Feliz that this occurred and of her preference. Objective - Appearance Appearance: Healthy Appearing Dysmorphic Features: No Hygiene: Normal Grooming: Well Kept - Behavior Psychomotor Activities: Normal Exhibits Abnormal Movement: No - Attitude and Relatedness Attitude and Relatedness: Cooperative Eye Contact: Good - Speech Quality: Unpressured Latencies: Normal Quantity: Terse - Mood Patient's Decription of Mood: "Okay" - Affect Observed Affect: Good Affect Consistent with: Euthymia - Thought Process Patient's Thought Process: Coherent Thought Content: No Passive Wish, No Suicidal Planning, No Homicidal Ideation, No Paranoid Ideation - Sensorium Experiencing Hallucinations: No, Sensorium is Clear Type of Hallucinations: Visual: No, Auditory: No, Command: No - Level of Consciousness Level of Consciousness: Alert Orientation: Yes Intact, Yes Orientated to Time, Yes Orientated to Place, Yes Orientated to Person - Impulse Control Impulse Control: Intact - Insight and Judgement Insight and Judgement: Good - Group Participation Particating in Group Activities: Yes - Medication Management Medication Management Adherence: Yes - Additional Observations Comments: Well groomed and unhappy. Dora is ready to go to rehab. She is thinking clearly and is goal directed. She is no longer suicidal. Thought content is focused on pain. Dora has been using BenGay cream and found it helpful. She is very interested in going to [place]. Assessment - Assessment Merits Inpatient Hospitalization: For Stabilization Inpatient DSM-V Dx: F43.10 Clinical Impression: 37-y.o. white, single female with two children not in her custody who comes to the hospital with plans to end her life by stepping in front of a car. On the unit, she feels better quickly, although she also agrees that she needs more care in a different setting. She is agreeable to rehab, which would be a good choice, although she has not admitted the full extent of her use. She continues to feel as if she needs more care, albeit in a setting that may challenge her to admit that she has an alcohol and drug problem. She is also hoping to gain insight into why she chooses men who lead her to drugs and alcohol. While she doesn't believe that she has an alcohol and drug problem, she does believe that she is too easily influenced. Plan - Plan Treatment Plan: Name: DORA SUAREZ Birthdate: 1980 [id number] Medications: Current Medications Acetaminophen (Tylenol Tab*) 650 mg PO Q4H PRN PRN Reason: PAIN or TEMP > 101 F Last Admin: 01/10/18 17:29 Dose: 650 mg Al Hydrox/Mg Hydrox/Simethicone (Maalox Plus*) 30 ml PO Q4H PRN PRN Reason: INDIGESTION Atomoxetine HCl (Strattera (Nf)) 80 mg PO QAM [facility] Last Admin: 01/11/18 09:03 Dose: 80 mg Cyclobenzaprine HCl (Flexeril Tab*) 10 mg PO TID PRN PRN Reason: PAIN Last Admin: 01/11/18 13:10 Dose: 10 mg Glycerin (Glycerin Adult Supp*) 1 supp ME DAILY PRN PRN Reason: CONSTIPATION Last Admin: 01/09/18 20:52 Dose: 1 supp Ibuprofen (Motrin Tab*) 600 mg PO Q6H PRN PRN Reason: PAIN Lidocaine (Topicaine 4% Gel*) 1 applic TOPICAL QID [facility] Last Admin: 01/11/18 13:08 Dose: 1 applic Meloxicam (Mobic(Nf)) 7.5 mg PO DAILY [facility] Last Admin: 01/11/18 14:32 Dose: 7.5 mg Methylphenidate HCl (Concerta) 27 mg PO DAILY [facility] Last Admin: 01/11/18 09:02 Dose: 27 mg Multi-Ingredient Liniment/Rub (Ramses Llamas*) 1 applic TOPICAL BID [facility] Last Admin: 01/11/18 09:02 Dose: 1 teasp Multivitamins (Theragran Tab*) 1 tab PO DAILY [facility] Last Admin: 01/11/18 09:02 Dose: 1 tab Nicotine Polacrilex (Nicotine Gum*) 2 mg PO Q2H PRN PRN Reason: CRAVING Omeprazole (Prilosec Cap*) 20 mg PO QAM [facility] Last Admin: 01/11/18 09:02 Dose: 20 mg Prazosin HCl (Minipress Cap*) 1 mg PO BEDTIME [facility] Last Admin: 01/10/18 20:46 Dose: 1 mg - Discharge Plan Discharge Plan: Drug/Alcohol Rehab Additional Comments: Dora has started prazosin, which has offered her some relief and more continuous sleep. She feels like she is more solid here and that she came to the right place. She is interested in going to rehab following this stay to address her inability to tell people that she doesn't agree with them or their assertions. She also would like to have more ability to tell people that she doesn't want to do what they ask of her. To effect these changes, Dora has agreed to go to drug and alcohol rehab. In addition, Dora's pain will be addressed.
[2018-01-11] MEDS: Prazosin CAP* 1 MG PO SCH (20:41)
[2018-01-12] MEDS: Analgesic BALM* 114 GM TOPICAL SCH ×2 (08:40→20:28)
[2018-01-12] MEDS: Lidocaine 4% GEL* 10 GM TUBE TOPICAL SCH ×4 (08:41→20:28)
[2018-01-12] MEDS: CMC: Atomoxetine (NF) 40 MG CAP PO SCH (08:42)
[2018-01-12] MEDS: CMCS: Meloxicam(NF) 7.5 MG TAB PO SCH (08:43)
[2018-01-12] MEDS: Methylphenidate ER 27 MG TAB PO SCH (08:43)
[2018-01-12] MEDS: Cyclobenzaprine TAB* 10 MG PO PRN ×3 (08:43→20:30)
[2018-01-12] MEDS: Vitamin THERAPEUTIC TAB PO SCH (08:43)
[2018-01-12] MEDS: Omeprazole CAP* 20 MG PO SCH (08:44)
--- NOTE | 2018-01-12 13:09 | PN ---
MHU: Group Therapy Note - Service Type Service Type: [id number] Group Psychotherapy - Cognitive Behavioral Group Therapy ( CBT):Patient was attentive and participatory in CBT programming this morning, and remained in good behavioral control. Patient expressed positive insights regarding relevant treatment interventions and goals.
[2018-01-12] MEDS: Glycerin ADULT SUPP PR PRN (13:23)
[2018-01-12] MEDS: Prazosin CAP* 1 MG PO SCH (20:44)
[2018-01-13] MEDS: Analgesic BALM* 114 GM TOPICAL SCH ×3 (09:09→22:35)
[2018-01-13] MEDS: CMC: Atomoxetine (NF) 40 MG CAP PO SCH (09:10)
[2018-01-13] MEDS: CMCS: Meloxicam(NF) 7.5 MG TAB PO SCH (09:11)
[2018-01-13] MEDS: Lidocaine 4% GEL* 10 GM TUBE TOPICAL SCH ×5 (09:11→22:35)
[2018-01-13] MEDS: Methylphenidate ER 27 MG TAB PO SCH (09:11)
[2018-01-13] MEDS: Vitamin THERAPEUTIC TAB PO SCH (09:12)
[2018-01-13] MEDS: Omeprazole CAP* 20 MG PO SCH (09:12)
[2018-01-13] MEDS: Cyclobenzaprine TAB* 10 MG PO PRN ×2 (12:35→20:29)
[2018-01-13] MEDS: Ibuprofen TAB* 600 MG PO PRN (12:35)
[2018-01-13] MEDS: Prazosin CAP* 1 MG PO SCH (20:29)
[2018-01-14] MEDS: Cyclobenzaprine TAB* 10 MG PO PRN ×3 (08:53→20:38)
[2018-01-14] MEDS: Omeprazole CAP* 20 MG PO SCH (08:54)
[2018-01-14] MEDS: CMCS: Meloxicam(NF) 7.5 MG TAB PO SCH (08:54)
[2018-01-14] MEDS: Vitamin THERAPEUTIC TAB PO SCH (08:54)
[2018-01-14] MEDS: Methylphenidate ER 27 MG TAB PO SCH (08:54)
[2018-01-14] MEDS: CMC: Atomoxetine (NF) 40 MG CAP PO SCH (08:56)
[2018-01-14] MEDS: Analgesic BALM* 114 GM TOPICAL SCH ×2 (08:57→20:37)
[2018-01-14] MEDS: Ibuprofen TAB* 600 MG PO PRN (12:38)
[2018-01-14] MEDS: Lidocaine 4% GEL* 10 GM TUBE TOPICAL SCH ×4 (13:26→20:37)
[2018-01-14] MEDS: Prazosin CAP* 1 MG PO SCH (20:37)
[2018-01-14] MEDS: Glycerin ADULT SUPP PR PRN (20:37)
[2018-01-15] MEDS: Methylphenidate ER 27 MG TAB PO SCH (08:32)
[2018-01-15] MEDS: CMCS: Meloxicam(NF) 7.5 MG TAB PO SCH (08:33)
[2018-01-15] MEDS: Vitamin THERAPEUTIC TAB PO SCH (08:33)
[2018-01-15] MEDS: Omeprazole CAP* 20 MG PO SCH (08:33)
[2018-01-15] MEDS: Lidocaine 4% GEL* 10 GM TUBE TOPICAL SCH ×4 (08:34→20:24)
[2018-01-15] MEDS: CMC: Atomoxetine (NF) 40 MG CAP PO SCH (08:34)
[2018-01-15] MEDS: Analgesic BALM* 114 GM TOPICAL SCH ×2 (08:34→20:24)
[2018-01-15] MEDS: Cyclobenzaprine TAB* 10 MG PO PRN ×2 (08:35→20:22)
[2018-01-15] MEDS ORDERED: Simethicone TAB* 80 MG TAB.CHEW PO PRN (16:29)
[2018-01-15] MEDS: Magnesium Hydroxide LIQ* 30 ML UDC PO PRN ×2 (16:51→21:50)
[2018-01-15] MEDS: Prazosin CAP* 1 MG PO SCH (20:22)
[2018-01-16 08:15] VITALS: BP 108/63
[2018-01-16] MEDS: Methylphenidate ER 27 MG TAB PO SCH (09:17)
[2018-01-16] MEDS: Omeprazole CAP* 20 MG PO SCH (09:18)
[2018-01-16] MEDS: Vitamin THERAPEUTIC TAB PO SCH (09:18)
[2018-01-16] MEDS: CMCS: Meloxicam(NF) 7.5 MG TAB PO SCH (09:18)
[2018-01-16] MEDS: CMC: Atomoxetine (NF) 40 MG CAP PO SCH (09:19)
[2018-01-16] MEDS: Cyclobenzaprine TAB* 10 MG PO PRN (09:20)
[2018-01-16] MEDS: Lidocaine 4% GEL* 10 GM TUBE TOPICAL SCH (09:21)
[2018-01-16] MEDS: Analgesic BALM* 114 GM TOPICAL SCH (09:21)
--- NOTE | 2018-01-16 11:26 | PN ---
MHU: Group Therapy Note - Service Type Service Type: [id number] Group Psychotherapy - Cognitive Behavioral Group Therapy ( CBT):Patient was attentive and participatory in CBT programming this morning, and remained in good behavioral control. Patient expressed positive insights regarding relevant treatment interventions and goals.
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
== END 2018-01-16 13:05 | DRG 755 ==
LOC: ED 20:42 → BSU 12-30 07:01
PROVIDERS: ADMIT Psychiatry & Neurology Psychiatry; ATTEND Psychiatry & Neurology Psychiatry
PROC: GZHZZZZ Group Psychotherapy (ICD-10-PCS; principal; 2018-01-03)
DX: F43.10 Post-traumatic stress disorder, unspecified (principal); R45.851 Suicidal ideations; F32.9 Major depressive disorder, single episode, unspecified; J45.909 Unspecified asthma, uncomplicated; K58.1 Irritable bowel syndrome with constipation; M06.9 Rheumatoid arthritis, unspecified; M35.3 Polymyalgia rheumatica; M79.7 Fibromyalgia; G43.909 Migraine, unspecified, not intractable, without status migrainosus; F17.210 Nicotine dependence, cigarettes, uncomplicated; F90.9 Attention-deficit hyperactivity disorder, unspecified type; Z62.810 Personal history of physical and sexual abuse in childhood; F41.1 Generalized anxiety disorder; I95.9 Hypotension, unspecified; M54.5 Low back pain; G89.29 Other chronic pain; F19.10 Other psychoactive substance abuse, uncomplicated; Z90.49 Acquired absence of other specified parts of digestive tract; Z88.0 Allergy status to penicillin; Z88.8 Allergy status to other drugs, medicaments and biological substances; Z91.040 Latex allergy status; Z87.442 Personal history of urinary calculi; Z98.51 Tubal ligation status; Z83.3 Family history of diabetes mellitus; Z82.49 Family history of ischemic heart disease and other diseases of the circulatory system; Z84.89 Family history of other specified conditions; Z56.0 Unemployment, unspecified; Z81.8 Family history of other mental and behavioral disorders; Z59.0 Homelessness; Z91.410 Personal history of adult physical and sexual abuse; Z91.5 Personal history of self-harm; Z90.710 Acquired absence of both cervix and uterus
CPT/HCPCS: 36415; 80053; 80307; 80320; 80329; 81003; 81015; 84443; 84702; 85025; 87086; 90853; 96102; 99222; 99231; 99232; 99238; 99285; A9270-GY; G0480

== ENCOUNTER 2018-01-31 14:02 | Emergency (ER) | payer OTHER ==
[2018-01-31 15:22] LABS: Urine Appearance Clear; Urine Blood Negative (Negative); Urine Color Yellow; Urine Ketones Negative (Negative); Urine Protein Negative (Negative); Urine Specific Gravity 1.008 (1.010-1.030); Urine Urobilinogen Negative (Negative)
[2018-01-31] MEDS ORDERED: traMADol TAB* 50 MG PO ONE (17:27)
[2018-01-31 18:59] LABS: ABS Basophils 0 10^3/ul (0-0.2); ABS Eosinophils 0.1 10^3/ul (0-0.6); ABS Lymphocytes 2.2 10^3/ul (1.0-4.8); ABS Monocytes 0.4 10^3/ul (0-0.8); ABS Nucleated RBC 0 10^3/ul; Eosinophil % 2.2 % (0-6); Hematocrit 35 % (35-47); Hemoglobin 11.8 g/dl (12.0-16.0); Lymphocyte % 37.1 % (25-47); Mean Corpuscular HGB Conc 34 g/dl (31-36); Mean Corpuscular Hemoglobin 31 pg (27-31); Mean Corpuscular Volume 90 fL (80-97); Mean Platelet Volume 8.1 um3 (7.4-10.4); Nucleated Red Blood Cells % 0; Platelet Count 246 10^3/ul (150-450); Red Blood Count 3.87 10^6/ul (4.0-5.4); Red Cell Distribution Width 13 % (10.5-15); White Blood Count 5.8 10^3/ul (3.5-10.8)
[2018-01-31 19:21] LABS: EGFR Non-African American 76.7 (>60)
--- NOTE | 2018-01-31 21:17 | RAD ---
Indication: Bilateral flank pain. Currently being treated for urinary tract infection. Comparison: December 15, 2017 ultrasound. Technique: Ultrasound kidneys and urinary bladder. Report: 11.2 x 3.9 x 5.4 cm RIGHT kidney. 10.8 x 5.8 x 5.0 cm LEFT kidney. Normal bilateral renal cortical echogenicity. 0.4 cm echogenic although nonshadowing structure at the level of a mid to upper pole calyx of the LEFT kidney suspicious for a potential renal stone. The differential includes normal medullary fat. Negative for hydronephrosis. No suspicious focal renal lesions. Prevoid urinary bladder volume estimated at 413 mL. Unremarkable 1.7 mm urinary bladder wall. No focal bladder lesions evident. Symmetric bilateral ureteral jets. Postvoid residual volume estimated at 62 mL. No conspicuous debris evident within the urinary bladder contents. IMPRESSION: 1. Potential although not definitive 0.4 cm LEFT renal stone. Negative for hydronephrosis. 2. Significant post void residual volume in the urinary bladder estimated at 62 mL.
--- NOTE | 2018-01-31 21:21 | RAD ---
Indication: Pelvic pain. Comparison: September 26, 2016 Technique: Transabdominal pelvic ultrasound. REPORT: Post hysterectomy. Negative for free pelvic fluid. 3.1 x 1.9 x 1.1 cm RIGHT ovary with documented vascular flow is remarkable for a 0.4 cm echogenic focus which may represent a phlebolith or dystrophic ossification related to a previous ovulation site. No suspicious lesions of the RIGHT ovary evident. 2.3 x 1.2 x 0.8 cm LEFT ovary with documented vascular flow is unremarkable. No visualized extra ovarian adnexal region lesions evident. IMPRESSION: 1. Post hysterectomy. 2. Negative for free pelvic fluid. 3. No suspicious ovarian or extraovarian lesions evident.
--- NOTE | 2018-01-31 21:54 | ED ---
Jason Mack Angela, scribed for Cristopher Lechuga MD on 01/31/18 at 1911 . Progress - Progress Note Progress Note: This pt was signed out by Dr. Ny, pending disposition, awaiting abdomen/ bladder US and pelvic US. Abdomen/Bladder US, as read by radiologist IMPRESSION: 1. Potential although not definitive 0.4 cm LEFT renal stone. Negative for hydronephrosis. 2. Significant post void residual volume in the urinary bladder estimated at 62 mL. Pelvic US, as read by radiologist IMPRESSION: 1. Post hysterectomy. 2. Negative for free pelvic fluid. 3. No suspicious ovarian or extraovarian lesions evident. Dr. Lechuga has reviewed these radiology report. Re-Evaluation - Re-Evaluation First Eval Re-Evaluation Time: 21:46 Comment: Pt is feeling better. I reviewed the US results with the pt. She will be discharged and is advised to take Tylenol and motrin for the pain. Course/Dx - Course Course Of Treatment: This pt was signed out by Dr. Ny, pending disposition, awaiting abdomen/bladder US and pelvic US. Pelvic US is negative. Abdomen/ bladder US shows potential although not definitive 0.4 cm LEFT renal stone. Negative for hydronephrosis. On re-evaluation pt is feeling better. Pt will be discharged home with follow up from her PCP. - Diagnoses Provider Diagnoses: Flank pain Discharge - Sign-Out/Discharge Documenting (check all that apply): Discharge/Admit/Transfer - Discharge - Discharge Plan Condition: Stable Disposition: HOME Patient Education Materials: Flank Pain (ED) Referrals: Cedric Elizabeth DO [Primary Care Provider] - 3 Days Additional Instructions: Recommend motrin and Tylenol for the pain. Please follow up with your primary care provider. RETURN TO EMERGENCY DEPARTMENT FOR ANY NEW OR WORSENING SYMPTOMS. The documentation as recorded by the Jason aguirre Angela accurately reflects the service I personally performed and the decisions made by , Cristopher Lechuga MD.
[2018-01-31 23:13] VITALS: BP 121/79
--- NOTE | 2018-02-01 08:20 | ED ---
Jaret Mack Jennifer, scribed for Merna Ny MD on 01/31/18 at 1721 . GI/ HPI - HPI Summary HPI Summary: The patient is a 37 year old female who comes from [facility] presenting with left flank pain and lower back pain today. She states she began treatment for a UTI and is currently on antibiotics. She complains of vaginal discharge but denies odor. She denies increased frequency. She denies sexual activity in over one month. - History of Current Complaint Chief Complaint: EDFlankPain Time Seen by Provider: 01/31/18 17:06 Stated Complaint: UTI/BACK PAIN Hx Obtained From: Patient Hx Last Menstrual Period: hysterectomy Onset/Duration: Started Hours Ago, Still Present Timing: Constant Severity: Moderate Current Severity: Moderate Pain Intensity: 8 Location of Pain: Diffuse, Radiates to: - lower back, Flank - left Pain Radiates to: Back, Flank Associated Signs and Symptoms: Positive: Other: - vaginal discharge. NEGATIVE: odor, frequency Additional Signs & Symptoms: Positive: Other: - vaginal discharge. NEGATIVE: odor, frequency Aggravating Factor(s): Nothing Alleviating Factor(s): Nothing - Additional Pertinent History Primary Care Physician: [id number] - Allergy/Home Medications Allergies/Adverse Reactions: Allergies Allergy/AdvReac Type Severity Reaction Status Date / Time aspirin Allergy Vomiting Verified 01/31/18 14:10 latex Allergy Hives Verified 01/31/18 14:10 Penicillins Allergy Vomiting Verified 01/31/18 14:10 Home Medications: Home Medications Methylphenidate ER [Concerta] 27 mg PO QAM MDD 27 mg 01/31/18 [History Confirmed 01/31/18] PMH/Surg Hx/FS Hx/Imm Hx Endocrine/Hematology History: Reports: Hx Anemia - IN THE PAST, NOT AT CURRENT TIME Denies: Hx Anticoagulant Therapy, Hx Diabetes, Hx Systemic Lupus Erythematosus, Hx Thyroid Disease Cardiovascular History: Reports: Other Cardiovascular Problems/Disorders - murmur Denies: Hx Congestive Heart Failure, Hx Hypertension Respiratory History: Reports: Hx Asthma - childhood-STATES OUTGREW, Hx Chronic Obstructive Pulmonary Disease (COPD) - says doctor has told her she is in the early stages of COPD Denies: Hx Lung Cancer, Hx Pneumonia, Hx Pulmonary Embolism, Other Respiratory Problems/Disorders GI History: Reports: Hx Irritable Bowel - PROBLEMS WITH CONSTIPATION, Other GI Disorders - GASTRITIS, lactose intolerant Denies: Hx Gall Bladder Disease, Hx Gastrointestinal Bleed, Hx Ulcer, Hx Urosepsis History: Reports: Hx Kidney Stones - LEFT kidney, Other Problems/ Disorders - Bacterial vaginosis Denies: Hx Dialysis, Hx Renal Disease Musculoskeletal History: Reports: Hx Rheumatoid Arthritis - PMR, Hx Back Problems, Hx Fibromyalgia, Other Musculoskeletal History - osteoarthritis Sensory History: Reports: Hx Contacts or Glasses Denies: Hx Hearing Aid Opthamlomology History: Reports: Hx Contacts or Glasses Neurological History: Reports: Hx Headaches - AT TIMES-TREATS WITH REST- TREATS WITH IBUPROFEN OR TYLENOL, Hx Migraine, Other Neuro Impairments/Disorders - ON MEDICATION FOR Denies: Hx Dementia, Hx Seizures, Hx Transient Ischemic Attacks (TIA) Psychiatric History: Reports: Hx Anxiety - ON MEDICATION, Hx Attention Deficit Hyperactivity Disorder - ADD, Hx Depression - ON MEDICATION FOR, Hx Panic Disorder, Hx Post Traumatic Stress Disorder, Hx Inpatient Treatment, Hx Community Mental Health Tx, Hx Suicide Attempt, Hx of Violent Episodes Against Others - ideation Denies: Hx Eating Disorder, Hx Schizophrenia, Hx Bipolar Disorder, Hx Substance Abuse - Cancer History Hx Chemotherapy: No - Surgical History Surgery Procedure, Year, and Place: T[place]- [place] [facility] [place]- [place]ICE. Hysterectomy 2016 Hx Anesthesia Reactions: No - Immunization History Date of Tetanus Vaccine: PT STATES UNSURE Date of Influenza Vaccine: has not received Infectious Disease History: Yes Infectious Disease History: Reports: Hx of Known/Suspected MRSA - R hip Denies: Hx Clostridium Difficile, Hx Hepatitis, Hx Human Immunodeficiency Virus (HIV), Hx Shingles, Hx Tuberculosis, History Other Infectious Disease, Traveled Outside the [place] in Last 30 Days - Family History Known Family History: Positive: Cardiac Disease, Diabetes, Other - Fibromyalgia - Social History Alcohol Use: Rare Alcohol Amount: 1-2 drinks monthly or less Hx Substance Use: No Substance Use Type: Reports: None Substance Use Comment - Amount & Last Used: rarely per pt repot Smoking Status (MU): Light Every Day Tobacco Smoker Type: Cigarettes Amount Used/How Often: 2 cigars/day Length of Time of Smoking/Using Tobacco: 15 YEARS Have You Smoked in the Last Year: Yes Review of Systems Positive: Abdominal Pain, Nausea Genitourinary: Negative - odor Positive: flank pain. Negative: dysuria, frequency All Other Systems Reviewed And Are Negative: Yes Physical Exam - Summary Physical Exam Summary: GENERAL: ~Patient is a well developed and nourished F who is lying comfortable in the stretcher. ~Patient is not in any acute respiratory distress. HEAD AND FACE: Normocephalic EYES: PERRLA, EOMI x 2. EARS: Hearing grossly intact. MOUTH: Oropharynx within normal limits. NECK: Supple, trachea is midline, no adenopathy, no JVD, no carotid bruit. CHEST: Symmetric, no tenderness at palpation LUNGS: Clear to auscultation bilaterally. No wheezing or crackles. CVS: Regular rate and rhythm, S1 and S2 present, no murmurs or gallops appreciated. ABDOMEN: Soft, tender in suprapubic area, worse on R than left. Bowel sounds are normal. No abdominal abnormal pulsations. : Cervical os is closed. Tenderness to palpation in suprapubic area. White cottage cheese-jose rafael discharge. EXTREMITIES: Full ROM in all major joints, no edema, no cyanosis or clubbing. NEURO: Alert and oriented x 3. No acute neurological deficits. Speech is normal and follows commands. SKIN: Dry and warm Triage Information Reviewed: Yes Vital Signs On Initial Exam: Initial Vitals Temp Pulse Resp BP Pulse Ox 97.8 F 111 14 110/72 98 01/31/18 14:10 01/31/18 14:10 01/31/18 14:10 01/31/18 14:10 01/31/18 14:10 Vital Signs Reviewed: Yes Diagnostics - Vital Signs Vital Signs Temp Pulse Resp BP Pulse Ox 01/31/18 16:34 97.8 F 97 18 118/79 99 01/31/18 14:10 97.8 F 111 14 110/72 98 - Laboratory Lab Results: Lab Results 01/31/18 Range/Units 14:20 Urine Color Yellow Urine Appearance Clear Urine pH 6.0 (5-9) Ur Specific [place] 1.008 L (1.010-1.030) Urine Protein Negative (Negative) Urine Ketones Negative (Negative) Urine Blood Negative (Negative) Urine Nitrate Negative (Negative) Urine Bilirubin Negative (Negative) Urine Urobilinogen Negative (Negative) Ur Leukocyte Esterase Negative (Negative) Urine Glucose Negative (Negative) Urine Ascorbic Acid * A (Negative) Result Diagrams: 01/31/18 18:39 Lab Statement: Any lab studies that have been ordered have been reviewed, and results considered in the medical decision making process. GIGU Course/Dx - Course Course Of Treatment: The patient is a 37 year old female who comes from [facility] presenting with left flank pain, abdominal pain, and lower back pain today. In the ED course the patient was given Ultram. Bloodwork was obtained. The patient is diagnosed with flank pain. Pt will be signed out to Dr. Lechuga at shift change pending US pelvic and US Renal and bladder. - Diagnoses Provider Diagnoses: Flank pain Discharge - Sign-Out/Discharge Documenting (check all that apply): Sign-Out Patient Signing out patient TO: Cristopher Lechuga - pending US Renal and Bladder and US Pelvic - Discharge Plan Referrals: Cedric Elizabeth, [Primary Care Provider] - The documentation as recorded by the Jaret aguirre Jennifer accurately reflects the service I personally performed and the decisions made by me, Merna Ny MD.
== END 2018-01-31 23:09 | disposition home or self-care (01) ==
LOC: ED 14:02
DX: R10.9 Unspecified abdominal pain (principal); F17.210 Nicotine dependence, cigarettes, uncomplicated; Z90.710 Acquired absence of both cervix and uterus; Z88.0 Allergy status to penicillin; Z88.6 Allergy status to analgesic agent
CPT/HCPCS: 36415; 76770; 76856; 80053; 81003; 83690; 85025; 86141; 87480; 87491; 87510; 87591; 87661; 99283; A9270-GY

== ENCOUNTER 2018-02-28 21:53 | Emergency (ER) | payer OTHER ==
[2018-02-28] MEDS ORDERED: Azithromycin TAB* 250 MG PO ONE (23:02)
[2018-02-28] MEDS ORDERED: Ibuprofen TAB* 600 MG PO ONE (23:03)
[2018-02-28 23:24] VITALS: BP 113/75
--- NOTE | 2018-02-28 23:42 | ED ---
Throat Pain/Nasal Congestion - HPI Summary HPI Summary: Complains of right ear pain, sore throat, headache 3 days. Denies fever, cough , nasal discharge, neck stiffness, SOB, CP, N/V/D, abdominal pain, change in urinary BM. Medical history is none. [facility] pt. - History of Current Complaint Chief Complaint: EDEarPain Time Seen by Provider: 02/28/18 22:48 Hx Obtained From: Patient Onset/Duration: Gradual Onset Severity: Mild Associated Signs And Symptoms: Positive: Negative - Allergies/Home Medications Allergies/Adverse Reactions: Allergies Allergy/AdvReac Type Severity Reaction Status Date / Time aspirin Allergy Vomiting Verified 02/28/18 21:59 latex Allergy Hives Verified 02/28/18 21:59 Penicillins Allergy Vomiting Verified 02/28/18 21:59 PMH/Surg Hx/FS Hx/Imm Hx Endocrine/Hematology History: Reports: Hx Anemia - IN THE PAST, NOT AT CURRENT TIME Denies: Hx Anticoagulant Therapy, Hx Diabetes, Hx Systemic Lupus Erythematosus, Hx Thyroid Disease Cardiovascular History: Reports: Other Cardiovascular Problems/Disorders - murmur Denies: Hx Congestive Heart Failure, Hx Hypertension Respiratory History: Reports: Hx Asthma - childhood-STATES OUTGREW, Hx Chronic Obstructive Pulmonary Disease (COPD) - says doctor has told her she is in the early stages of COPD Denies: Hx Lung Cancer, Hx Pneumonia, Hx Pulmonary Embolism, Other Respiratory Problems/Disorders GI History: Reports: Hx Irritable Bowel - PROBLEMS WITH CONSTIPATION, Other GI Disorders - GASTRITIS, lactose intolerant Denies: Hx Gall Bladder Disease, Hx Gastrointestinal Bleed, Hx Ulcer, Hx Urosepsis History: Reports: Hx Kidney Stones - LEFT kidney, Other Problems/ Disorders - Bacterial vaginosis Denies: Hx Dialysis, Hx Renal Disease Musculoskeletal History: Reports: Hx Rheumatoid Arthritis - PMR, Hx Back Problems, Hx Fibromyalgia, Other Musculoskeletal History - osteoarthritis Sensory History: Reports: Hx Contacts or Glasses Denies: Hx Hearing Aid Opthamlomology History: Reports: Hx Contacts or Glasses Neurological History: Reports: Hx Headaches - AT TIMES-TREATS WITH REST- TREATS WITH IBUPROFEN OR TYLENOL, Hx Migraine, Other Neuro Impairments/Disorders - ON MEDICATION FOR Denies: Hx Dementia, Hx Seizures, Hx Transient Ischemic Attacks (TIA) Psychiatric History: Reports: Hx Anxiety - ON MEDICATION, Hx Attention Deficit Hyperactivity Disorder - ADD, Hx Depression - ON MEDICATION FOR, Hx Panic Disorder, Hx Post Traumatic Stress Disorder, Hx Inpatient Treatment, Hx Community Mental Health Tx, Hx Suicide Attempt, Hx of Violent Episodes Against Others - ideation Denies: Hx Eating Disorder, Hx Schizophrenia, Hx Bipolar Disorder, Hx Substance Abuse - Cancer History Hx Chemotherapy: No - Surgical History Surgery Procedure, Year, and Place: [place] [facility] [place]. 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 Denies: Hx Clostridium Difficile, Hx Hepatitis, Hx Human Immunodeficiency Virus (HIV), Hx Shingles, Hx Tuberculosis, History Other Infectious Disease, Traveled Outside the [place] in Last 30 Days - Family History Known Family History: Positive: Cardiac Disease, Diabetes, Other - Fibromyalgia - Social History Alcohol Use: Rare Alcohol Amount: 1-2 drinks monthly or less Hx Substance Use: No Substance Use Type: Reports: None Substance Use Comment - Amount & Last Used: rarely per pt repot Smoking Status (MU): Light Every Day Tobacco Smoker Type: Cigarettes Amount Used/How Often: 2 cigars/day Length of Time of Smoking/Using Tobacco: 15 YEARS Have You Smoked in the Last Year: Yes Review of Systems Constitutional: Negative Eyes: Negative Positive: Sore Throat, Ear Ache, Nasal Discharge Cardiovascular: Negative Respiratory: Negative Gastrointestinal: Negative Genitourinary: Negative Musculoskeletal: Negative Skin: Negative Neurological: Negative Psychological: Normal All Other Systems Reviewed And Are Negative: Yes Physical Exam Triage Information Reviewed: Yes Vital Signs On Initial Exam: Initial Vitals Temp Pulse Resp BP Pulse Ox 98.5 F 86 16 107/70 100 02/28/18 21:57 02/28/18 21:57 02/28/18 21:57 02/28/18 21:57 02/28/18 21:57 Vital Signs Reviewed: Yes Appearance: Positive: Well-Appearing Skin: Positive: Warm Head/Face: Positive: Normal Head/Face Inspection Eyes: Positive: Normal ENT: Positive: Pharyngeal erythema, TM red - rt, Uvula midline. Negative: Tonsillar swelling, Tonsillar exudate Neck: Positive: Supple Respiratory/Lung Sounds: Positive: Clear to Auscultation Cardiovascular: Positive: Normal Abdomen Description: Positive: Nontender Musculoskeletal: Positive: Normal Neurological: Positive: Normal Psychiatric: Positive: Normal AVPU Assessment: Alert - Gil Coma Scale Best Eye Response: 4 - Spontaneous Best Motor Response: 6 - Obeys Commands Best Verbal Response: 5 - Oriented Coma Scale Total: 15 Diagnostics - Vital Signs Vital Signs Temp Pulse Resp BP Pulse Ox 02/28/18 23:12 75 113/75 99 02/28/18 23:00 82 100 02/28/18 22:42 82 98/65 97 02/28/18 22:12 89 103/65 99 02/28/18 22:09 92 99 02/28/18 21:57 98.5 F 86 16 107/70 100 - Laboratory Lab Statement: Any lab studies that have been ordered have been reviewed, and results considered in the medical decision making process. EENT Course/Dx - Course Course Of Treatment: Complains of right ear pain, sore throat, headache 3 days. Denies fever, cough, nasal discharge, neck stiffness, SOB, CP, N/V/D, abdominal pain, change in urinary BM. Medical history is none. [facility] pt. Diagnosis of otitis media. Started on 500 mg azithromycin here. 250 mg by mouth for the next 4 days - Diagnoses Provider Diagnoses: Otitis media Discharge - Sign-Out/Discharge Documenting (check all that apply): Discharge/Admit/Transfer - Discharge Plan Condition: Stable Disposition: HOME Prescriptions: Azithromycin 250 mg PO DAILY 5 Days #6 tablet Patient Education Materials: Serous Otitis Media (ED) Referrals: Cedric Elizabeth DO [Primary Care Provider] - Additional Instructions: Take antibiotics as directed. Follow-up with primary care - Billing Disposition and Condition Condition: STABLE Disposition: Home
== END 2018-02-28 23:51 | disposition home or self-care (01) ==
LOC: ED 21:53
DX: H66.90 Otitis media, unspecified, unspecified ear (principal); J02.9 Acute pharyngitis, unspecified; R51 Headache; F17.210 Nicotine dependence, cigarettes, uncomplicated
CPT/HCPCS: 99282; A9270-GY

== ENCOUNTER 2018-10-23 18:48 | Emergency (ER) | payer OTHER ==
[2018-10-23 21:51] LABS: Urine Appearance Turbid; Urine Bacteria Absent (Absent); Urine Bilirubin Negative (Negative); Urine Blood 2+ (Negative); Urine Color Yellow; Urine Glucose Negative (Negative); Urine Ketones Negative (Negative); Urine Nitrite Negative (Negative); Urine Protein 1+(30 mg/dL) (Negative); Urine Red Blood Cell 3+(>10/hpf) (Absent); Urine Specific Gravity 1.016 (1.010-1.030); Urine Squamous Epithelial Cell Present (Absent); Urine Urobilinogen Positive (Negative); Urine White Blood Cell 3+(>20/hpf) (Absent)
[2018-10-24] MEDS ORDERED: HYDROmorphone INJ1* 1 MG/ML SYRINGE IV SLOW PU PRN (00:56)
[2018-10-24] MEDS ORDERED: Ketorolac INJ* 15 MG/ML 1 ML VIAL IM ONE (00:56)
[2018-10-24] MEDS ORDERED: NS 0.9% 1000 ML** 2,000 ML IV ONE (00:56)
[2018-10-24] MEDS ORDERED: HYDROmorphone INJ1* 1 MG/ML SYRINGE IV SLOW PU ONE (00:56)
--- NOTE | 2018-10-24 00:56 | ED ---
GI/ HPI - HPI Summary HPI Summary: This patient is a 38 year old F presenting to ED with a chief complaint of lower back pain and dysuria since 2.5 weeks ago. She saw her PCP 1.5 weeks ago and was given macrobid (rx for 1 week) which helped the sx of dysuria and back pain after a few days, but it came back about 3 days ago. The CC is described as worse than before. The patient rates the pain 5/10 in severity. Symptoms aggravated by nothing. Symptoms alleviated by nothing. Patient reports nausea and chills. Patient denies fever and vomiting. PMHx of UTI. - History of Current Complaint Chief Complaint: EDBackInjuryPain Time Seen by Provider: 10/24/18 00:30 Stated Complaint: BACK PAIN Hx Obtained From: Patient Hx Last Menstrual Period: hysterectomy Onset/Duration: Started Weeks Ago, Still Present Timing: Constant, Lasting Weeks Severity: Moderate Current Severity: Moderate - 5/10 Pain Intensity: 5 Associated Signs and Symptoms: Positive: Back Pain, Nausea, Dysuria, Chills. Negative: Vomiting, Fever Aggravating Factor(s): Nothing Alleviating Factor(s): Nothing - Additional Pertinent History Primary Care Physician: [id number] - Allergy/Home Medications Allergies/Adverse Reactions: Allergies Allergy/AdvReac Type Severity Reaction Status Date / Time aspirin Allergy Vomiting Verified 02/28/18 21:59 latex Allergy Hives Verified 02/28/18 21:59 Penicillins Allergy Vomiting Verified 02/28/18 21:59 PMH/Surg Hx/FS Hx/Imm Hx Endocrine/Hematology History: Reports: Hx Anemia - IN THE PAST, NOT AT CURRENT TIME Denies: Hx Anticoagulant Therapy, Hx Diabetes, Hx Systemic Lupus Erythematosus, Hx Thyroid Disease Cardiovascular History: Reports: Other Cardiovascular Problems/Disorders - murmur Denies: Hx Congestive Heart Failure, Hx Hypertension Respiratory History: Reports: Hx Asthma - childhood-STATES OUTGREW, Hx Chronic Obstructive Pulmonary Disease (COPD) - says doctor has told her she is in the early stages of COPD Denies: Hx Lung Cancer, Hx Pneumonia, Hx Pulmonary Embolism, Other Respiratory Problems/Disorders GI History: Reports: Hx Irritable Bowel - PROBLEMS WITH CONSTIPATION, Other GI Disorders - GASTRITIS, lactose intolerant Denies: Hx Gall Bladder Disease, Hx Gastrointestinal Bleed, Hx Ulcer, Hx Urosepsis History: Reports: Hx Kidney Stones - LEFT kidney, Other Problems/ Disorders - Bacterial vaginosis Denies: Hx Dialysis, Hx Renal Disease Musculoskeletal History: Reports: Hx Rheumatoid Arthritis - PMR, Hx Back Problems, Hx Fibromyalgia, Other Musculoskeletal History - osteoarthritis Sensory History: Reports: Hx Contacts or Glasses Denies: Hx Hearing Aid Opthamlomology History: Reports: Hx Contacts or Glasses Neurological History: Reports: Hx Headaches - AT TIMES-TREATS WITH REST- TREATS WITH IBUPROFEN OR TYLENOL, Hx Migraine, Other Neuro Impairments/Disorders - ON MEDICATION FOR Denies: Hx Dementia, Hx Seizures, Hx Transient Ischemic Attacks (TIA) Psychiatric History: Reports: Hx Anxiety - ON MEDICATION, Hx Attention Deficit Hyperactivity Disorder - ADD, Hx Depression - ON MEDICATION FOR, Hx Panic Disorder, Hx Post Traumatic Stress Disorder, Hx Inpatient Treatment, Hx Community Mental Health Tx, Hx Suicide Attempt, Hx of Violent Episodes Against Others - ideation Denies: Hx Eating Disorder, Hx Schizophrenia, Hx Bipolar Disorder, Hx Substance Abuse - Cancer History Hx Chemotherapy: No - Surgical History Surgery Procedure, Year, and Place: TUBAL LIGATION- 2012- [facility] [place] [facility] [place]AL [place]GERY- OFFICE. 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 Denies: Hx Clostridium Difficile, Hx Hepatitis, Hx Human Immunodeficiency Virus (HIV), Hx Shingles, Hx Tuberculosis, History Other Infectious Disease, Traveled Outside the [place] in Last 30 Days - Family History Known Family History: Positive: Cardiac Disease, Diabetes, Other - Fibromyalgia - Social History Alcohol Use: Rare Alcohol Amount: 1-2 drinks monthly or less Hx Substance Use: No Substance Use Type: Reports: None Substance Use Comment - Amount & Last Used: rarely per pt repot Smoking Status (MU): Light Every Day Tobacco Smoker Type: Cigarettes Amount Used/How Often: 2 cigars/day Length of Time of Smoking/Using Tobacco: 15 YEARS Have You Smoked in the Last Year: Yes Review of Systems Positive: Chills. Negative: Fever Positive: Nausea. Negative: Vomiting Positive: dysuria Positive: Other - back pain All Other Systems Reviewed And Are Negative: Yes Physical Exam - Summary Physical Exam Summary: Appearance: Well-appearing, Well-nourished, lying in bed comfortably Skin: Warm, dry, no obvious rash Eyes: sclera anicteric, no conjunctival pallor ENT: mucous membranes moist, pharynx appears normal Neck: Supple, nontender Respiratory: Clear to auscultation, no signs of respiratory distress Cardiovascular: Normal S1, S2. No murmurs. Normal distal pulses in tibial and radial bilaterally. Abdomen: Soft, nontender, normal active bowel sounds present Musculoskeletal: Normal, Strength/ROM Intact Back: R CVA tenderness Neurological: A&Ox3, awake and alert, mentation is normal, speech is fluent and appropriate Psychiatric: affect is normal, does not appear anxious or depressed Triage Information Reviewed: Yes Vital Signs On Initial Exam: Initial Vitals Temp Pulse Resp BP Pulse Ox 98.0 F 90 18 124/86 100 10/23/18 18:54 10/23/18 18:54 10/23/18 18:54 10/23/18 18:54 10/23/18 18:54 Vital Signs Reviewed: Yes Diagnostics - Vital Signs Vital Signs Temp Pulse Resp BP Pulse Ox 10/23/18 21:19 97.7 F 87 16 119/80 99 10/23/18 18:54 98.0 F 90 18 124/86 100 - Laboratory Lab Results: Lab Results 10/23/18 Range/Units 21:32 Urine Color Yellow Urine Appearance Turbid Urine pH 7.0 (5-9) Ur Specific [place] 1.016 (1.010-1.030) Urine Protein 1+(30 mg/dl) A (Negative) Urine Ketones Negative (Negative) Urine Blood 2+ A (Negative) Urine Nitrate Negative (Negative) Urine Bilirubin Negative (Negative) Urine Urobilinogen Positive A (Negative) Ur Leukocyte Esterase 3+ A (Negative) Urine WBC (Auto) 3+(>20/hpf) A (Absent) Urine RBC (Auto) 3+(>10/hpf) A (Absent) Ur Squamous Epith Cells Present A (Absent) Urine Bacteria Absent (Absent) Urine Glucose Negative (Negative) Result Diagrams: 10/24/18 01:41 10/24/18 01:41 Lab Statement: Any lab studies that have been ordered have been reviewed, and results considered in the medical decision making process. - CT CT abd/pel CT Interpretation Completed By: Radiologist Summary of CT Findings: 1. Nonobstructing left renal calculus. 2. Small amount of free intraperitoneal fluid in the cul-de-sac. 3. Hysterectomy. 4. Right ovarian cyst. GIGU Course/Dx - Course Assessment/Plan: This patient is a 38 year old F presenting to ED with a chief complaint of lower back pain and dysuria since 2.5 weeks ago. She saw her PCP 1.5 weeks ago and was given macrobid (rx for 1 week) which helped the sx of dysuria and back pain after a few days, but it came back about [address] abd/pel reveals 1. Nonobstructing left renal calculus. 2. Small amount of free intraperitoneal fluid in the cul-de-sac. 3. Hysterectomy. 4. Right ovarian cyst. This patient will be discharged with dx of pyelonephritis. Patient understands and is agreeable with this plan. - Diagnoses Differential Diagnoses - Female: Pyelonephritis Provider Diagnoses: Pyelonephritis Discharge - Sign-Out/Discharge Documenting (check all that apply): Patient Departure - discharge Patient Received Moderate/Deep Sedation with Procedure: No - Discharge Plan Condition: Good Disposition: HOME Prescriptions: Azithromyxin MISAEL (NF) [Z-Misael (Zithromax) 250 mg tabs #6] 2 tab PO .TODAY, THEN 1 DAILY #6 tab Ondansetron ODT TAB* [Zofran 4 MG Odt TAB*] 8 mg PO Q6H PRN #10 tab.odt PRN Reason: Nausea Patient Education Materials: Kidney Infection (ED) Referrals: [facility] [Outside] Additional Instructions: You should check in with your PCP later this week so they can check on your culture and sensitivity results and see if a change need be made with the antibiotic the urgent care prescribed. Go ahead and fill the bactrim today. - Billing Disposition and Condition Condition: GOOD Disposition: Home - Attestation Statements Document Initiated by Ned: Yes Documenting Scribe: Jasen Feliz Provider For Whom Ned is Documenting (Include Credential): MD Julianna Conwayibe Attestation: Jasen Mack, scribed for Edwin Domínguez MD on 10/26/18 at 0217. Scribe Documentation Reviewed: Yes Provider Attestation: The documentation as recorded by the Jasen aguirre accurately reflects the service I personally performed and the decisions made by me, Edwin Domínguez MD Status of Scribe Document: Viewed
[2018-10-24] MEDS ORDERED: Ketorolac INJ* 30 MG/ML 1 ML VIAL IV PUSH ONE (01:22)
[2018-10-24 01:50] LABS: ABS Basophils 0 10^3/ul (0-0.2); ABS Eosinophils 0.2 10^3/ul (0-0.6); ABS Lymphocytes 3.2 10^3/ul (1.0-4.8); ABS Monocytes 0.4 10^3/ul (0-0.8); ABS Neutrophils 4.8 10^3/ul (1.5-7.7); ABS Nucleated RBC 0 10^3/ul; Eosinophil % 1.8 %; Hematocrit 35 % (35-47); Hemoglobin 11.8 g/dl (12.0-16.0); Lymphocyte % 37.1 %; Mean Corpuscular HGB Conc 33 g/dl (31-36); Mean Corpuscular Hemoglobin 30 pg (27-31); Mean Corpuscular Volume 90 fL (80-97); Mean Platelet Volume 7.7 fL (7.4-10.4); Nucleated Red Blood Cells % 0.1; Platelet Count 263 10^3/ul (150-450); Red Blood Count 3.96 10^6/ul (4.00-5.40); Red Cell Distribution Width 13 % (10.5-15); White Blood Count 8.7 10^3/ul (3.5-10.8)
[2018-10-24 02:08] LABS: ALT 10 U/L (7-52); AST 13 U/L (13-39); Albumin 4.3 g/dL (3.2-5.2); Albumin/Globulin Ratio 1.8 (1-3); Alkaline Phosphatase 48 U/L (34-104); Anion Gap 5 mmol/L (2-11); BUN/Creatinine Ratio 14.8 (8-20); Blood Urea Nitrogen 12 mg/dL (6-24); C Reactive Protein < 1.00 mg/L (<8.01); CO2 Carbon Dioxide 27 mmol/L (22-32); Calcium 9.4 mg/dL (8.6-10.3); Chloride 108 mmol/L (101-111); EGFR African American 96.3 (>60); EGFR Non-African American 79.6 (>60); Globulin 2.4 g/dL (2-4); Glucose 96 mg/dL (70-100); Potassium 3.5 mmol/L (3.5-5.0); Sodium 140 mmol/L (135-145); Total Protein 6.7 g/dL (6.4-8.9)
[2018-10-24 02:15] LABS: HCG Pregnancy < 0.60 mIU/mL
[2018-10-24] MEDS ORDERED: Iohexol 300* (CONTRAST) 10 ML SDV IV ONE (03:17)
[2018-10-24] MEDS ORDERED: HYDROmorphone INJ1* 1 MG/ML SYRINGE ONE (03:54)
[2018-10-24 05:31] VITALS: BP 122/79
[2018-10-24] MEDS ORDERED: Ondansetron ODT TAB* 4 MG SL ONE (05:35)
== END 2018-10-24 05:29 | disposition home or self-care (01) ==
LOC: ED 18:48
DX: N12 Tubulo-interstitial nephritis, not specified as acute or chronic (principal); M54.9 Dorsalgia, unspecified; R11.0 Nausea; Z88.0 Allergy status to penicillin; Z88.6 Allergy status to analgesic agent; F17.210 Nicotine dependence, cigarettes, uncomplicated
CPT/HCPCS: 36415; 74177; 80053; 81003; 81015; 83605; 83690; 84702; 85025; 86140; 87040; 87077; 87086; 87186; 96372; 96374; 96375; 99282; J1170; J1885; Q9967

== ENCOUNTER 2019-01-26 10:06 | Emergency (ER) | payer OTHER ==
[2019-01-26 10:18] VITALS: BP 110/64
--- NOTE | 2019-01-26 11:48 | UC ---
Abdominal Pain Female HPI - HPI Summary HPI Summary: 38 year old female with h/o BV in past presents with: 1) dark urine x several days, no burning with urination, + frequency, no fever, chills. + lower back pain, no flank pain. 2) Vaginal discharge increased, + odor, white, watery discharge. mild itching - History of Current Complaint Chief Complaint: UCGU Stated Complaint: LOWER BACK PAIN PERSONAL Time Seen by Provider: 01/26/19 10:42 Hx Last Menstrual Period: hysterectomy ?: No Onset/Duration: Sudden Onset, Lasting Days Severity Initially: Moderate Severity Currently: Moderate Pain Intensity: 4 Pain Scale Used: 0-10 Numeric Radiates to: Back Character: Aching, Colicy Allergies/Adverse Reactions: Allergies Allergy/AdvReac Type Severity Reaction Status Date / Time aspirin Allergy Vomiting Verified 01/26/19 10:19 bee venom protein (honey bee) Allergy Difficulty Verified 01/26/19 10:19 Breathing/Wheezing latex Allergy Hives Verified 01/26/19 10:19 Penicillins Allergy Vomiting Verified 01/26/19 10:19 Home Medications: Home Medications Cyclobenzaprine HCl 10 mg PO DAILY WITH MEAL 01/26/19 [History Confirmed ] Gabapentin 300 mg PO SEE INSTRUCTIONS 01/26/19 [History Confirmed 01/26/19] Meloxicam(NF) [Mobic(NF)] 15 mg PO DAILY 01/26/19 [History Confirmed 01/26/19] Mirtazapine TAB* [Remeron TAB*] 15 mg PO BEDTIME 01/26/19 [History Confirmed 12/12] PMH/Surg Hx/FS Hx/Imm Hx Previously Healthy: Yes Other History Of: Negative For: HIV, Hepatitis B, Hepatitis C, Anticoagulant Therapy - Surgical History Surgical History: Yes Surgery Procedure, Year, and Place: TUBAL LIGATION- 2013- [facility] – [place]. ORAL SURGERY- OFFICE. Hysterectomy 2016 - Family History Known Family History: Positive: Cardiac Disease, Diabetes, Other - Fibromyalgia - Social History Alcohol Use: Occasionally Alcohol Amount: 1-2 drinks monthly or less Substance Use Type: None Substance Use Comment - Amount & Last Used: rarely per pt repot Smoking Status (MU): Former Smoker Type: Cigarettes Amount Used/How Often: 2 cigars/day Length of Time of Smoking/Using Tobacco: 15 YEARS Have You Smoked in the Last Year: Yes When Did the Patient Quit Smoking/Using Tobacco: 1 MONTH Household Exposure Type: Cigarettes - Immunization History Most Recent Influenza Vaccination: 05/2018 Most Recent Pneumonia Vaccination: never Review of Systems All Other Systems Reviewed And Are Negative: Yes Constitutional: Positive: Negative Genitourinary: Positive: Frequency, Urgency, Vaginal/Penile Itching, Vaginal/ Penile Discharge Musculoskeletal: Positive: Myalgia Is Patient Immunocompromised?: No Physical Exam Triage Information Reviewed: Yes Appearance: Well-Appearing, No Pain Distress, Well-Nourished Vital Signs: Initial Vital Signs Temp 98.3 F 01/26/19 10:14 Pulse 112 01/26/19 10:14 Resp 18 01/26/19 10:14 BP 110/64 01/26/19 10:14 Pulse Ox 98 01/26/19 10:14 Vital Signs Reviewed: Yes Eyes: Positive: Conjunctiva Clear Respiratory: Positive: Chest non-tender, Lungs clear, Normal breath sounds. Negative: No respiratory distress, No accessory muscle use Abdomen Description: Positive: Nontender, No Organomegaly, Soft. Negative: CVA Tenderness (R), CVA Tenderness (L), Distended, Guarding, Splenomegaly Pelvic Exam: Positive: Speculum Exam Normal, No Masses, Discharge - watery, white/ reinoso discharge. Negative: No Cerv. Motion Tender - no cervix, Tender Adnexa, Tender Uterus Neurological: Positive: Alert Psychological Exam: Normal Skin Exam: Normal Abd Pain Female Course/Dx - Course Course Of Treatment: UA- + for UTI, abx given, exam + for BV, cultures sent. - Differential Dx/Diagnosis Differential Diagnosis: Diverticulitis Provider Diagnosis: Bacterial vaginosis Discharge - Sign-Out/Discharge Documenting (check all that apply): Patient Departure All imaging exams completed and their final reports reviewed: No Studies - Discharge Plan Condition: Good Disposition: HOME Prescriptions: metroNIDAZOLE [Metrogel] 1 % VAGINAL DAILY #5 dose Nitrofurantoin Monohyd/M-Cryst [Macrobid 100 mg Capsule] 100 mg PO BID #10 cap Patient Education Materials: Bacterial Vaginosis (ED), Urinary Tract Infection in Women (ED) Referrals: Shirley Canela NP [Primary Care Provider] - Additional Instructions: - Macrobid twice daily x 5 days for urinary tract infection - Metrogel one applicator into vagina nightly x 5 days - Follow up with primary care physician if no improvement within 2-3 days - Go to ER with worsening pain, fever, chills. - Avoid sex until off antibiotics - Tylenol/ motrin for pain, spasms - Increase fluid intake - Billing Disposition and Condition Condition: GOOD Disposition: Home
[2019-01-29 13:42] LABS: Neisseria gonorrhoeae (GC) RNA Negative (Negative)
== END 2019-01-26 11:47 | disposition home or self-care (01) ==
LOC: UCEAST 10:06
DX: N76.0 Acute vaginitis (principal); R35.0 Frequency of micturition; M54.5 Low back pain; Z88.0 Allergy status to penicillin; Z88.6 Allergy status to analgesic agent; Z91.030 Bee allergy status; Z91.040 Latex allergy status; Z87.891 Personal history of nicotine dependence
CPT/HCPCS: 81003; 84702; 87086; 87480; 87491; 87510; 87591; 99212; G0463

== ENCOUNTER 2019-03-18 16:39 | Emergency (ER) | payer OTHER ==
[2019-03-18 16:58] VITALS: BP 123/74
[2019-03-18] MEDS ORDERED: Sulfamethox/Trimethoprim DS 800/160* TAB PO ONE (17:22)
--- NOTE | 2019-03-18 17:31 | UC ---
Complaint Female HPI - HPI Summary HPI Summary: 2 DAYS OF DYSURIA, LOW ABDOMINAL PRESSURE, FREQUENCY AND URGENCY. HAS MILD LOW BACK PAIN. NO FEVER. NO NAUSEA/VOMITING. - History Of Current Complaint Chief Complaint: UCAbdominalPain Stated Complaint: URINARY COMPLAINT Time Seen by Provider: 03/18/19 16:44 Hx Obtained From: Patient Hx Last Menstrual Period: hysterectomy 2015 Onset/Duration: Gradual Onset, Lasting Days, Still Present Severity Initially: Moderate Severity Currently: Moderate Pain Intensity: 6 Pain Scale Used: 0-10 Numeric Character: Burning Aggravating Factor(s): Urination Alleviating Factor(s): Nothing Associated Signs And Symptoms: Positive: Back Pain. Negative: Fever, Vaginal Bleeding/Discharge, Nausea - Allergies/Home Medications Allergies/Adverse Reactions: Allergies Allergy/AdvReac Type Severity Reaction Status Date / Time aspirin Allergy Vomiting Verified 03/18/19 17:01 bee venom protein (honey bee) Allergy Difficulty Verified 03/18/19 17:01 Breathing/Wheezing latex Allergy Hives Verified 03/18/19 17:01 Penicillins Allergy Vomiting Verified 03/18/19 17:01 PMH/Surg Hx/FS Hx/Imm Hx Respiratory History: COPD, Asthma Psychological History: Anxiety, Depression Other History Of: Negative For: HIV, Hepatitis B, Hepatitis C, Anticoagulant Therapy - Surgical History Surgical History: Yes Surgery Procedure, Year, and Place: TUBAL LIGATION- 2012- [facility] – [place]. ORAL SURGERY- OFFICE. Hysterectomy 2015 - Family History Known Family History: Positive: Cardiac Disease, Diabetes, Other - Fibromyalgia - Social History Alcohol Use: Occasionally Alcohol Amount: 1-2 drinks monthly or less Substance Use Type: None Substance Use Comment - Amount & Last Used: rarely per pt repot Smoking Status (MU): Light Every Day Tobacco Smoker Type: Cigarettes Amount Used/How Often: 2 cigars/day Length of Time of Smoking/Using Tobacco: 15 YEARS Have You Smoked in the Last Year: Yes When Did the Patient Quit Smoking/Using Tobacco: 1 MONTH Household Exposure Type: Cigarettes - Immunization History Most Recent Influenza Vaccination: 05/2018 Most Recent Pneumonia Vaccination: never Review of Systems All Other Systems Reviewed And Are Negative: Yes Constitutional: Positive: Negative Respiratory: Positive: Negative Cardiovascular: Positive: Negative Gastrointestinal: Positive: Abdominal Pain Genitourinary: Positive: Dysuria, Frequency, Urgency Physical Exam Triage Information Reviewed: Yes Appearance: Well-Appearing, No Pain Distress, Well-Nourished Vital Signs: Initial Vital Signs Temp 99.2 F 03/18/19 16:51 Pulse 107 03/18/19 16:51 Resp 16 03/18/19 16:51 BP 123/74 03/18/19 16:51 Pulse Ox 100 03/18/19 16:51 Laboratory Tests 03/18/19 16:53 POC Urine Color Yellow POC Urine Clarity Cloudy POC Urine pH 6.5 POC Ur Specif [place] 1.020 POC Urine Protein Negative POC Ur Glucose (UA) Negative POC Urine Ketones Negative POC Urine Blood Trace-lysed A POC Urine Nitrite Positive A POC Urine Bilirubin Negative POC Urine Urobilinogen 0.2 POC U Leukocyte Esteras 2+ A Vital Signs Reviewed: Yes Eyes: Positive: Conjunctiva Clear ENT: Positive: Hearing grossly normal Neck: Positive: Supple Respiratory: Positive: No respiratory distress, No accessory muscle use Cardiovascular: Positive: Pulses Normal Abdomen Description: Positive: Soft, Other: - MILD SUPRAPUBIC TTP. Negative: CVA Tenderness (R), CVA Tenderness (L), Distended, Guarding Musculoskeletal: Positive: No Edema Neurological: Positive: Alert Psychological: Positive: Age Appropriate Behavior Skin: Negative: Rashes Complaint Female Dx - Differential Dx/Diagnosis Provider Diagnosis: UTI (urinary tract infection) Discharge - Sign-Out/Discharge Documenting (check all that apply): Patient Departure All imaging exams completed and their final reports reviewed: No Studies - Discharge Plan Condition: Stable Disposition: HOME Prescriptions: Phenazopyridine TAB* [Pyridium TAB*] 200 mg PO TID #6 tab Sulfamethox/Trimethoprim DS* [Bactrim DS 800/160 TAB*] 1 tab PO BID #10 tab Patient Education Materials: Urinary Tract Infection in Women (ED) Referrals: Shirley Canela NP [Primary Care Provider] - If Needed - Billing Disposition and Condition Condition: STABLE Disposition: Home
== END 2019-03-18 17:30 | disposition home or self-care (01) ==
LOC: UCEAST 16:39
DX: N39.0 Urinary tract infection, site not specified (principal); J44.9 Chronic obstructive pulmonary disease, unspecified; F41.9 Anxiety disorder, unspecified; F32.9 Major depressive disorder, single episode, unspecified; F17.210 Nicotine dependence, cigarettes, uncomplicated; Z88.0 Allergy status to penicillin; Z91.040 Latex allergy status
CPT/HCPCS: 81003; 87077; 87086; 87186; 99212; A9270-GY; G0463